=== PATIENT | female | born 1990 | race American Indian/Alaskan Native ===

== ENCOUNTER 2017-01-06 01:52 | Emergency (ER) | payer OTHER ==
[2017-01-06 02:21] VITALS: BP 114/83
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
[2017-01-06] MEDS ORDERED: FLEXERIL PO ONE (08:37)
== END 2017-01-06 08:52 | disposition home or self-care (01) ==
LOC: ED 01:52
DX: M25.512 Pain in left shoulder (principal); M54.2 Cervicalgia; V43.52XA Car driver injured in collision with other type car in traffic accident, initial encounter; Y93.89 Activity, other specified; Y92.89 Other specified places as the place of occurrence of the external cause; Y99.8 Other external cause status
CPT/HCPCS: 72040; 72100; 99283

== ENCOUNTER 2017-05-25 15:21 | Emergency (ER) | payer BC, OTHER ==
[2017-05-25 16:19] LABS: Basophils # (Auto) 0.1 K/mm3 (0.0-0.1); Basophils % (Auto) 0.6 % (0.0-1.8); Eosinophils # (Auto) 0.3 K/mm3 (0.0-0.4); Eosinophils % (Auto) 3.3 % (0.0-4.3); Hematocrit 43.2 % (30.3-42.9); Hemoglobin 13.8 gm/dl (10.1-14.3); Lymphocytes # (Auto) 3.3 K/mm3 (1.2-5.4); Lymphocytes % (Auto) 37.3 % (13.4-35.0); Mean Corpuscular HGB Conc 32 % (30-34); Mean Corpuscular Hemoglobin 29 pg (28-32); Mean Corpuscular Volume 89 fl (79-97); Monocytes # (Auto) 0.6 K/mm3 (0.0-0.8); Monocytes % (Auto) 7.1 % (0.0-7.3); Platelet Count 237 K/mm3 (140-440); Red Blood Count 4.83 M/mm3 (3.65-5.03); Red Cell Distribution Width 13.6 % (13.2-15.2)
[2017-05-25 16:22] LABS: Bilirubin,Urine NEG (Negative); Blood,Urine NEG (Negative); Color,Urine Yellow (Yellow); Mucus,Urine 3+ /HPF; Protein,Urine <15 mg/dL mg/dL (Negative); Urobilinogen,Urine < 2.0 mg/dL (<2.0)
[2017-05-25 16:37] LABS: Alanine Aminotransferase 14 units/L (7-56); BUN/Creatinine Ratio 28; Blood Urea Nitrogen 14 mg/dL (7-17); Calcium 9.2 mg/dL (8.4-10.2); Hemolysis Index 8; Lipase 25 units/L (13-60)
[2017-05-26 01:17] VITALS: BP 106/66
[2017-05-26] MEDS ORDERED: TORADOL IM ONE (01:51)
--- NOTE | 2017-05-26 01:51 | Emergency Department Report ---
ED Abdominal Pain HPI - General Chief Complaint: Abdominal Pain Stated Complaint: ABD PAIN Time Seen by Provider: 05/26/17 01:29 Source: patient Mode of arrival: Ambulatory Limitations: No Limitations - History of Present Illness Initial Comments: Ms. Dave denies dysuria. Denies vaginal discharge. No history of abdominal surgeries MD Complaint: abdominal pain -: Gradual Location: RLQ Radiation: none Migration to: no migration Severity: moderate Severity scale (0 -10): 8 Quality: aching - Related Data Previous Rx's Medication Instructions Recorded Last Taken Type traMADol [Ultram 50 MG tab] 50 mg PO Q6HR PRN #20 tablet 03/27/14 Unknown Rx Ibuprofen [Motrin 600 MG tab] 600 mg PO Q8H PRN #30 tablet 04/17/15 Unknown Rx Nitrofurantoin [place]/M-Cryst 100 mg PO Q12HR #20 capsule 04/17/15 Unknown Rx [Macrobid CAP] Cyclobenzaprine [Flexeril] 10 mg PO TID PRN #20 tablet 01/06/17 Unknown Rx Ibuprofen [Motrin 800 MG tab] 800 mg PO TID PRN #15 tablet 01/06/17 Unknown Rx HYDROcodone/APAP 5-325 [[place] 1 each PO Q6HR PRN #10 tablet 05/26/17 Unknown Rx 5/325] Ibuprofen 800 mg PO TID PRN #15 tablet 05/26/17 Unknown Rx Allergies Allergy/AdvReac Type Severity Reaction Status Date / Time No Known Allergies Allergy Unverified 12/31/12 08:10 ED Review of Systems ROS: Stated complaint: ABD PAIN Other details as noted in HPI Comment: All other systems reviewed and negative Constitutional: denies: fever, malaise Respiratory: denies: cough Cardiovascular: denies: chest pain ED Past Medical Hx - Past Medical History Previous Medical History?: No - Surgical History Past Surgical History?: No - Social History Smoking Status: Never Smoker Substance Use Type: None - Medications Home Medications: Home Medications Medication Instructions Recorded Confirmed Last Taken Type traMADol [Ultram 50 MG tab] 50 mg PO Q6HR PRN #20 tablet 03/27/14 Unknown Rx Ibuprofen [Motrin 600 MG tab] 600 mg PO Q8H PRN #30 tablet 04/17/15 Unknown Rx Nitrofurantoin [place]/M-Cryst 100 mg PO Q12HR #20 capsule 04/17/15 Unknown Rx [Macrobid CAP] Cyclobenzaprine [Flexeril] 10 mg PO TID PRN #20 tablet 01/06/17 Unknown Rx Ibuprofen [Motrin 800 MG tab] 800 mg PO TID PRN #15 tablet 01/06/17 Unknown Rx HYDROcodone/APAP 5-325 [[place] 1 each PO Q6HR PRN #10 tablet 05/26/17 Unknown Rx 5/325] Ibuprofen 800 mg PO TID PRN #15 tablet 05/26/17 Unknown Rx ED Physical Exam - General Limitations: No Limitations General appearance: alert, in no apparent distress - Head Head exam: Present: atraumatic, normocephalic - Eye Eye exam: Present: normal appearance - ENT ENT exam: Present: mucous membranes moist - Neck Neck exam: Present: normal inspection - Respiratory Respiratory exam: Present: normal lung sounds bilaterally. Absent: respiratory distress - Cardiovascular Cardiovascular Exam: Present: regular rate, normal rhythm. Absent: systolic murmur, diastolic murmur, rubs, gallop - GI/Abdominal GI/Abdominal exam: Present: soft, normal bowel sounds. Absent: distended, tenderness, guarding, rebound - External exam: Present: other (pelvic exam deferred) - Extremities Exam Extremities exam: Present: normal inspection - Back Exam Back exam: Present: normal inspection - Neurological Exam Neurological exam: Present: alert, oriented X3 - Psychiatric Psychiatric exam: Present: normal affect, normal mood - Skin Skin exam: Present: warm, dry, intact, normal color. Absent: rash ED Course Vital Signs 05/25/17 05/26/17 15:38 01:16 Temperature 98.6 F Pulse Rate 79 68 Respiratory 18 16 Rate Blood Pressure 118/64 Blood Pressure 106/66 [Left] O2 Sat by Pulse 99 100 Oximetry ED Medical Decision Making - Lab Data Result diagrams: 05/25/17 15:58 05/25/17 15:58 Laboratory Results - last 24 hr 05/25/17 05/25/17 05/25/17 15:58 15:58 15:58 WBC 8.9 RBC 4.83 Hgb 13.8 Hct 43.2 H MCV 89 MCH 29 MCHC 32 RDW 13.6 Plt Count 237 Lymph % (Auto) 37.3 H [place] % (Auto) 7.1 Eos % (Auto) 3.3 Baso % (Auto) 0.6 Lymph # 3.3 [place] # 0.6 Eos # 0.3 Baso # 0.1 Seg Neutrophils % 51.7 Seg Neutrophils # 4.6 Sodium 138 Potassium 4.1 Chloride 100.7 Carbon Dioxide 24 Anion Gap 17 BUN 14 Creatinine 0.5 L Estimated GFR > 60 BUN/Creatinine Ratio 28 Glucose 77 Calcium 9.2 Total Bilirubin 0.70 AST 13 ALT 14 Alkaline Phosphatase 64 Total Protein 7.3 Albumin 4.0 Albumin/Globulin Ratio 1.2 Lipase 25 HCG, Qual Negative Urine Color Urine Turbidity Urine pH Ur Specific [place] Urine Protein Urine Glucose (UA) Urine Ketones Urine Blood Urine Nitrite Urine Bilirubin Urine Urobilinogen Ur Leukocyte Esterase Urine WBC (Auto) Urine RBC (Auto) U Epithel Cells (Auto) Urine Mucus 05/25/17 16:00 WBC RBC Hgb Hct MCV MCH MCHC RDW Plt Count Lymph % (Auto) [place] % (Auto) Eos % (Auto) Baso % (Auto) Lymph # [place] # Eos # Baso # Seg Neutrophils % Seg Neutrophils # Sodium Potassium Chloride Carbon Dioxide Anion Gap BUN Creatinine Estimated GFR BUN/Creatinine Ratio Glucose Calcium Total Bilirubin AST ALT Alkaline Phosphatase Total Protein Albumin Albumin/Globulin Ratio Lipase HCG, Qual Urine Color Yellow Urine Turbidity Clear Urine pH 5.0 Ur Specific [place] 1.026 Urine Protein <15 mg/dl Urine Glucose (UA) Neg Urine Ketones Neg Urine Blood Neg Urine Nitrite Neg Urine Bilirubin Neg Urine Urobilinogen < 2.0 Ur Leukocyte Esterase Neg Urine WBC (Auto) 1.0 Urine RBC (Auto) 1.0 U Epithel Cells (Auto) 7.0 Urine Mucus 3+ Vital Signs - 24 hr 05/25/17 05/26/17 15:38 01:16 Temperature 98.6 F Pulse Rate 79 68 Respiratory 18 16 Rate Blood Pressure 118/64 Blood Pressure 106/66 [Left] O2 Sat by Pulse 99 100 Oximetry - Medical Decision Making Ms. Dave presents with right lower quadrant pain. No indication of appendicitis. Does have a history of ovarian cysts or previous CT scan. No indication of PID without fever or vaginal discharge. Plan patient received IM Toradol and I recommended [facility] follow-up. Prescription for ibuprofen and [place] . Critical care attestation.: If time is entered above; I have spent that time in minutes in the direct care of this critically ill patient, excluding procedure time. ED Disposition Clinical Impression: Right lower quadrant abdominal pain Disposition: DC-01 TO HOME OR SELFCARE Is pt being admited?: No Does the pt Need Aspirin: No Condition: Stable Instructions: Abdominal Pain (ED) Prescriptions: HYDROcodone/APAP 5-325 [[place] 5/325] 1 each PO Q6HR PRN #10 tablet PRN Reason: Pain Ibuprofen 800 mg PO TID PRN #15 tablet PRN Reason: Pain Referrals: SONAL SANDERS MD [Staff Physician] - 3-5 Days Forms: Work/School Release Form(ED) Time of Disposition: 01:53
== END 2017-05-26 02:08 | disposition home or self-care (01) ==
LOC: ED 15:21
DX: R10.31 Right lower quadrant pain (principal)
CPT/HCPCS: 36415; 80053; 81001; 83690; 84703; 85025; 96372; 99283; J1885

== ENCOUNTER 2018-05-02 12:16 | Emergency (ER) | payer MEDICAID, OTHER ==
--- NOTE | 2018-05-02 12:33 | Emergency Department Report ---
Chief Complaint: Abdominal Pain Stated Complaint: ABD PAIN Time Seen by Provider: 05/02/18 12:30 - HPI History of Present Illness: Pt presents with right lower abdominal pain that began 2 days ago denies any dysuria, no emesis, no vag bleeding, no vag discharge pt is currently 18 weeks /P:2/A:0 LNMP December 24, 2017 OB is My [facility] [employer] [facility] pt has not taken any medication MSE screening note: Focused history and physical exam performed. Due to findings the following was ordered: UA, labs, quant ED Disposition for MSE Condition: Stable Instructions: Abdominal Pain (ED)
[2018-05-02 12:53] LABS: Bacteria,Urine 1+ /HPF (Negative); Bilirubin,Urine NEG (Negative); Blood,Urine NEG (Negative); Color,Urine Yellow (Yellow); Mucus,Urine FEW /HPF; Protein,Urine <15 mg/dL mg/dL (Negative); Urobilinogen,Urine < 2.0 mg/dL (<2.0)
[2018-05-02 13:06] LABS: Basophils % (Auto) 0.3 % (0.0-1.8); Eosinophils # (Auto) 0.1 K/mm3 (0.0-0.4); Eosinophils % (Auto) 1.4 % (0.0-4.3); Hematocrit 36.8 % (30.3-42.9); Hemoglobin 12.3 gm/dl (10.1-14.3); Lymphocytes # (Auto) 1.9 K/mm3 (1.2-5.4); Lymphocytes % (Auto) 19.1 % (13.4-35.0); Mean Corpuscular HGB Conc 33 % (30-34); Mean Corpuscular Volume 89 fl (79-97); Monocytes # (Auto) 0.6 K/mm3 (0.0-0.8); Platelet Count 208 K/mm3 (140-440); Red Blood Count 4.12 M/mm3 (3.65-5.03); Red Cell Distribution Width 13.7 % (13.2-15.2)
[2018-05-02 13:24] LABS: Alanine Aminotransferase 9 units/L (7-56); Albumin 3.4 g/dL (3.9-5); BUN/Creatinine Ratio 25; Blood Urea Nitrogen 10 mg/dL (7-17); Calcium 8.9 mg/dL (8.4-10.2); Hemolysis Index 32
--- NOTE | 2018-05-02 14:18 | Emergency Department Report ---
ED HPI - General Chief complaint: Abdominal Pain Stated complaint: ABD PAIN Time Seen by Provider: 05/02/18 12:30 Source: patient Mode of arrival: Ambulatory Limitations: No Limitations - History of Present Illness Initial comments: 27-year-old female presents to the ED with right pelvic pain. The patient is currently 18 weeks . States has been experiencing intermittent pain for the last 2 days. Patient states pain is exacerbated by walking, trying to turn onto her left side. Patient states the pain is better if she is just sitting or lying still. OB: Dr Bonny CHEN Complaint: abdominal pain -: days(s) (2) Radiation: RLQ Severity: mild Quality: sharp Consistency: intermittent Worsens with: movement Associated symptoms: denies: nausea/vomiting, vaginal bleeding - Related Data Previous Rx's Medication Instructions Recorded Last Taken Type traMADol [Ultram 50 MG tab] 50 mg PO Q6HR PRN #20 tablet 03/27/14 Unknown Rx Ibuprofen [Motrin 600 MG tab] 600 mg PO Q8H PRN #30 tablet 04/17/15 Unknown Rx Nitrofurantoin [place]/M-Cryst 100 mg PO Q12HR #20 capsule 04/17/15 Unknown Rx [Macrobid CAP] Cyclobenzaprine [Flexeril] 10 mg PO TID PRN #20 tablet 01/06/17 Unknown Rx Ibuprofen [Motrin 800 MG tab] 800 mg PO TID PRN #15 tablet 01/06/17 Unknown Rx HYDROcodone/APAP 5-325 [[place] 1 each PO Q6HR PRN #10 tablet 05/26/17 Unknown Rx 5/325] Ibuprofen 800 mg PO TID PRN #15 tablet 05/26/17 Unknown Rx Allergies Allergy/AdvReac Type Severity Reaction Status Date / Time No Known Allergies Allergy Verified 05/02/18 12:18 ED Review of Systems ROS: Stated complaint: ABD PAIN Other details as noted in HPI Comment: All other systems reviewed and negative Constitutional: denies: fever Gastrointestinal: abdominal pain. denies: nausea, vomiting Genitourinary: other (denies vag bleeding) ED Past Medical Hx - Past Medical History Previous Medical History?: No - Surgical History Past Surgical History?: No - Social History Smoking Status: Never Smoker Substance Use Type: None - Medications Home Medications: Home Medications Medication Instructions Recorded Confirmed Last Taken Type traMADol [Ultram 50 MG tab] 50 mg PO Q6HR PRN #20 tablet 03/27/14 Unknown Rx Ibuprofen [Motrin 600 MG tab] 600 mg PO Q8H PRN #30 tablet 04/17/15 Unknown Rx Nitrofurantoin [place]/M-Cryst 100 mg PO Q12HR #20 capsule 04/17/15 Unknown Rx [Macrobid CAP] Cyclobenzaprine [Flexeril] 10 mg PO TID PRN #20 tablet 01/06/17 Unknown Rx Ibuprofen [Motrin 800 MG tab] 800 mg PO TID PRN #15 tablet 01/06/17 Unknown Rx HYDROcodone/APAP 5-325 [[place] 1 each PO Q6HR PRN #10 tablet 05/26/17 Unknown Rx 5/325] Ibuprofen 800 mg PO TID PRN #15 tablet 05/26/17 Unknown Rx ED Physical Exam - General Limitations: No Limitations General appearance: alert, in no apparent distress - Head Head exam: Present: atraumatic, normocephalic - Eye Eye exam: Present: normal appearance - ENT ENT exam: Present: mucous membranes moist - Neck Neck exam: Present: normal inspection - Respiratory Respiratory exam: Present: normal lung sounds bilaterally. Absent: respiratory distress - Cardiovascular Cardiovascular Exam: Present: regular rate, normal rhythm - GI/Abdominal GI/Abdominal exam: Present: soft. Absent: distended, tenderness - Extremities Exam Extremities exam: Present: normal inspection - Neurological Exam Neurological exam: Present: alert, oriented X3 - Psychiatric Psychiatric exam: Present: normal affect, normal mood - Skin Skin exam: Present: warm, dry, intact, normal color ED Course Vital Signs 05/02/18 12:32 Temperature 97.7 F Pulse Rate 83 Respiratory 18 Rate Blood Pressure 122/67 O2 Sat by Pulse 100 Oximetry ED Medical Decision Making - Lab Data Result diagrams: 05/02/18 12:48 05/02/18 12:48 Critical care attestation.: If time is entered above; I have spent that time in minutes in the direct care of this critically ill patient, excluding procedure time. ED Disposition Clinical Impression: 18 weeks gestation of , Abdominal pain during in second trimester Disposition: DC-01 TO HOME OR SELFCARE Is pt being admited?: No Condition: Stable Instructions: Abdominal Pain in (ED) Referrals: PRIMARY CARE, [Referring] - 3-5 Days
--- NOTE | 2018-05-02 19:44 | Ultrasound Report ---
PROCEDURE: US OB >= 14 WEEKS FETUS TECHNIQUE: Transabdominal obstetrical ultrasound HISTORY: R pelvic pain COMPARISONS: None FINDINGS: Single live intrauterine second trimester with ultrasound estimated gestational age of 18 w eeks 3 days by measurements composite. heart rate of 148 bpm. Cervix length is 3.6 cm. Amniotic fluid volume is within normal limits. Fetus is in cephalic presentation. The placenta is anterior, grade 1 and demonstrates no abruption or previa. The fetus is in cephalic presentation. The right ovary is unremarkable and demonstrates Doppler flow. No free fluid. IMPRESSION: Single live intrauterine with ultrasound DARRION 09/30/2018. Unremarkable exam. This document is electronically signed by Luciano Rubio MD., May 02 2018 07:41:39 PM ET
[2018-05-02 19:59] VITALS: BP 120/68
== END 2018-05-02 19:59 | disposition home or self-care (01) ==
LOC: ED 12:16
DX: O26.892 Other specified pregnancy related conditions, second trimester (principal); R10.2 Pelvic and perineal pain; R10.31 Right lower quadrant pain; Z3A.18 18 weeks gestation of pregnancy
CPT/HCPCS: 36415; 76805; 80053; 81001; 83690; 84702; 85025

== ENCOUNTER 2018-07-10 13:26 | Outpatient (CLI) | payer BC, MEDICAID | END 2018-07-10 15:41 | disposition home or self-care (01) | LOC: TRG 13:26 | PROVIDERS: ATTEND Obstetrics & Gynecology | DX: O47.02 False labor before 37 completed weeks of gestation, second trimester (principal); Z3A.26 26 weeks gestation of pregnancy | CPT/HCPCS: 59025 ==

== ENCOUNTER 2018-09-10 08:29 | Outpatient (CLI) | payer BC, MEDICAID ==
[2018-09-10 09:04] VITALS: BP 111/62
[2018-09-10] MEDS ORDERED: VISTARIL PO PRN (10:10)
== END 2018-09-10 12:10 | disposition home or self-care (01) ==
LOC: TRG 08:29
PROVIDERS: ATTEND Obstetrics & Gynecology
DX: O47.03 False labor before 37 completed weeks of gestation, third trimester (principal); Z3A.37 37 weeks gestation of pregnancy

== ENCOUNTER 2018-09-23 09:07 | Inpatient (IN) | payer BC, MEDICAID ==
--- NOTE | 2018-09-23 13:17 | Ultrasound Report ---
ULTRASOUND BIOPHYSICAL PROFILE INDICATION / CLINICAL INFORMATION: Isolated late decel. COMPARISON: None available. FINDINGS: BREATHING MOVEMENT = 2 GROSS BODY MOVEMENT = 2 TONE = 2 QUALITATIVE AMNIOTIC FLUID VOLUME = 2 TOTAL BIOPHYSICAL SCORE = 09/24 AMNIOTIC FLUID INDEX (cm) = 5.9 PRESENTATION: Cephalic. HEART RATE (beats per minute): 138 IMPRESSION: 1. biophysical profile = 09/24 Signer Name: Lisandro Fenton MD Signed: 09/23/2018 1:12 PM Workstation Name: [id number]
--- NOTE | 2018-09-23 13:29 | Ultrasound Report ---
Limited OB ultrasound. History: Amniotic fluid index, well being Comparison: None Procedure: Real time ultrasound was utilized to evaluate. Findings: A single intrauterine is identified in a cephalic presentation. Positive he art motion and movement is identified. heart rate is 138 bpm. Amnionic fluid volume is de creased. Amniotic fluid index is measuring 5.9 cm. Impression: 1. Single viable IUP in a cephalic presentation. Amniotic fluid volume is decreased with SANKET of 5.9 c m. Signer Name: Laila Croft MD Signed: 09/23/2018 1:24 PM Workstation Name: [id number]
[2018-09-23] MEDS ORDERED: PITOCin/NS 20 UNIT/1000ML DRIP 20 UNITS/1,000 ML BAG IV SCH (15:00)
[2018-09-23] MEDS ORDERED: PITOCin/NS 30 UNIT/500ML 30 UNITS/500 ML BAG IV SCH ×2 (15:00)
[2018-09-23] MEDS ORDERED: XYLOCAINE 2% INFILTRATI NR (15:30)
[2018-09-23] MEDS ORDERED: BRETHINE SUB-Q PRN (15:30)
[2018-09-23] MEDS ORDERED: BRETHINE IVP PRN (15:30)
--- NOTE | 2018-09-23 15:50 | History and Physical Report ---
History of Present Illness Date of examination: 09/23/18 Date of admission: 09/23/18 Chief complaint: contractions History of present illness: Pt presents for labor check and was noted to have variable decel on triage. SANKET done and was 5.9. Pt being admitted for IOL for low SANKET. EDC Confirmation: 10/01/2018 Gestational Age: 8 1/7 weeks Past History : 3 Term Births: 1 Premature Births: 1 Living Children: 2 Para: 2 Mult. Births: 0 Prev : 0 Prev. attempt? 0 Aborta: 0 Elect. Ab: 0 Spont. Ab: 0 Ectopics: 0 # 1 Delivery date: 12/30/2006 Weeks Gestation: 36 labor: yes Delivery type: Anesthesia type: epidural Delivery location: [facility] Sex: Female weight: 5 # 2 Delivery date: 10/03/2011 Weeks Gestation: 38 Delivery type: Anesthesia type: none Delivery location: [facility] Infant Sex: Female weight: 5 Past Medical History: Reviewed history from 07/24/2017 and no changes required: Chlamydia 2014 Past Surgical History: Reviewed history from 05/03/2014 and no changes required: Negative Past Surgical History Past Medical History Abnormal PAP: negative CHICA Exposure: negative Infertility: negative Uterine Anomaly: negative Uterine Surgery (not C/S): negative Other Gynecologic Problems: negative 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 Infection History Hx of STD: chlamydia HIV Risk Eval: low risk Hepatitis B Risk Eval: low risk Personal hx. of genital herpes: no Partner hx. of genital herpes: no Rash, Viral, or Febrile illness since last LMP? 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 Genetic History Congenital Heart Defect: Mom: no Dad: no Omar Disease: Mom: no Dad: no Thalassemia Mom: no Dad: no Neural Tube Defect Mom: no Dad: no Down's Syndrome Mom: no Dad: no Emiliano-Sachs Mom: no Dad: no Sickle Cell Disease/Trait Mom: no Dad: no Hemophilia Mom: no Dad: no Muscular Dystrophy Mom: no Dad: no Cystic Fibrosis Mom: no Dad: no Hester Chorea Mom: no Dad: no Mental Retardation Mom: no Dad: no Fragile X Mom: no Dad: no Other Genetic/Chromosomal Disorder Mom: no Dad: no Child w/other defect Mom: no Dad: no Enviromental Exposures Enviromental Exposures Reviewed Xray Exposure: no Medication, drug, or alcohol use since LMP: no Chemical/Other Exposure: no Exposure to Cat Liter: no Hx of Parvovirus (Fifth Disease): no Occupational Exposure to Children: none Past History Past Medical History: other (see hpi) Past Surgical History: other (see hpi) 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 LOOMS History: other (see hpi) Social history: other (see hpi) - Obstetrical History Expected Date of Delivery: 10/01/18 Actual Gestation: 38 Week(s) 6 Day(s) : 3 Para: 2 Hx # Term Pregnancies: 1 Number of Pregnancies: 1 Number of Living Children: 2 Medications and Allergies Allergies Allergy/AdvReac Type Severity Reaction Status Date / Time No Known Allergies Allergy Verified 05/02/18 12:18 Home Medications Medication Instructions Recorded Confirmed Last Taken Type RX: traMADol [Ultram 50 MG tab] 50 mg PO Q6HR PRN #20 tablet 03/27/14 Unknown Rx Nitrofurantoin [place]/M-Cryst 100 mg PO Q12HR #20 capsule 04/17/15 Unknown Rx [Macrobid CAP] RX: Ibuprofen [Motrin 600 MG tab] 600 mg PO Q8H PRN #30 tablet 04/17/15 Unknown Rx Cyclobenzaprine [Flexeril] 10 mg PO TID PRN #20 tablet 01/06/17 Unknown Rx RX: Ibuprofen [Motrin 800 MG tab] 800 mg PO TID PRN #15 tablet 01/06/17 Unknown Rx HYDROcodone/APAP 5-325 [[place] 1 each PO Q6HR PRN #10 tablet 05/26/17 Unknown Rx 5/325] RX: Ibuprofen [Ibuprofen 800] 800 mg PO TID PRN #15 tablet 05/26/17 Unknown Rx Active Meds: Active Medications Ephedrine Sulfate (Ephedrine Sulfate) 10 mg IV Q2M PRN PRN Reason: Hypotension Lactated Ringer's (Lactated Ringers) 1,000 mls @ 125 mls/hr IV DIRECT YOLANDA Oxytocin/Sodium Chloride (Pitocin/Ns 20 Unit/1000ml Drip) 20 units in 1,000 mls @ 125 mls/hr IV DIRECT YOLANDA Oxytocin/Sodium Chloride (Pitocin/Ns 30 Unit/500ml) 30 units in 500 mls @ 1 mls/hr IV TITR YOLANDA; Protocol Oxytocin/Sodium Chloride (Pitocin/Ns 30 Unit/500ml) 30 units in 500 mls @ 4 mls/hr IV TITR YOLANDA; Protocol Lidocaine (Xylocaine 2%) 20 ml INFILTRATI ONCE NR Stop: 09/24/18 15:29 Mineral Oil (Mineral Oil) 30 ml PO QHS PRN PRN Reason: Constipation Terbutaline Sulfate (Brethine) 0.25 mg SUB-Q ONCE PRN PRN Reason: Hyperstimulation/Hypertonicity Terbutaline Sulfate (Brethine) 0.25 mg IVP ONCE PRN PRN Reason: Hyperstimulation/Hypertonicity - Vital Signs Vital signs: Vital Signs Pulse BP 88 113/65 09/23/18 10:01 09/23/18 10:01 Temp Pulse Resp BP Pulse Ox 95 H 115/67 09/23/18 15:30 09/23/18 15:30 - Physical Exam Lungs: Positive: Normal air movement Abdomen: Positive: normal appearance, soft, normal bowel sounds. Negative: distention, tenderness, guarding Genitourinary (Female): Positive: normal external genitalia, normal perenium - Obstetrical FHR: category 1 Results All other labs normal. Assessment and Plan - Patient Problems (1) 38 weeks gestation of Current Visit: Yes Status: Acute (2) SANKET (amniotic fluid index) borderline low Current Visit: Yes Status: Acute Plan to address problem: -admit and start IOL -anticipate
--- NOTE | 2018-09-23 16:18 | Progress Note ---
Assessment and Plan - Patient Problems (1) 38 weeks gestation of Current Visit: Yes Status: Acute (2) SANKET (amniotic fluid index) borderline low Current Visit: Yes Status: Acute Plan to address problem: -now in active labor -pain management. -antibx for gbs. -nurse made aware of pt progression. Subjective - Subjective Date of service: 09/23/18 Principal diagnosis: term IOL for low SANKET; GBS positive Interval history: pt now having contractions q 1-2 minutes and feels pain with the contractions. Does desire epidural but will take IV pain meds at this time Patient reports: movement normal, contractions, no loss of fluid, no vaginal bleeding Objective - Vital Signs Vital Signs: Vital Signs - 12hr 09/23/18 09/23/18 10:01 15:30 Pulse Rate 88 95 H Blood Pressure 113/65 115/67 - Exam Cervical Dilatation: 4 Cervical Effacement Percentage: 50 station: -2 Uterine Contraction Pattern: Regular Uterine Tone Measurement Phase: Resting Uterine Contraction Intensity: Moderate Extremities: normal Deep Tendon Reflex Grade: Normal +2
[2018-09-23] MEDS ORDERED: AMPICILLIN/NS 2 GM/100 ML 2 GM/100 ML BAG IV ONE (16:20)
[2018-09-23] MEDS: LACTATED RINGERS 1,000 ML IV SCH ×2 (17:19→19:07)
[2018-09-23 17:42] LABS: Hematocrit 40.7 % (30.3-42.9); Hemoglobin 13.3 gm/dl (10.1-14.3); Mean Corpuscular HGB Conc 33 % (30-34); Mean Corpuscular Volume 91 fl (79-97); Platelet Count 193 K/mm3 (140-440); Red Blood Count 4.47 M/mm3 (3.65-5.03)
[2018-09-23] MEDS ORDERED: ZOFRAN IV PRN (18:04)
[2018-09-23] MEDS ORDERED: STADOL IV PRN (18:04)
[2018-09-23] MEDS: AMPICILLIN/NS 1 GM/50 ML 1 GM/50 ML BAG IV SCH ×2 (19:40→22:58)
[2018-09-23] MEDS ORDERED: NARCAN 2 MG/2 ML IV PRN (21:11)
[2018-09-23] MEDS ORDERED: MARCAINE 0.25% INFILTRATI ONE (21:43)
[2018-09-23] MEDS ORDERED: MINERAL OIL PO PRN (22:00)
[2018-09-23] MEDS ORDERED: fentaNYL-BUPIV 2 MCG/ML-0.125% 200 MCG/100 ML BAG EPIDURAL SCH (22:00)
--- NOTE | 2018-09-23 22:25 | Event Note ---
Date: 09/23/18 Variable decelerations noted. SVE 6/80/-2, vertex, SROM approx 10 minutes ago according to RN, rai. Pt reports being uncomfortable with contractions s/p epidural placement. 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 Pt repositioned, decelerations resolved. Will continue to monitor.
--- NOTE | 2018-09-23 23:10 | Anesthesia Consultation ---
Anesthesia Consult and Med Hx Date of service: 09/23/18 - Airway Anesthetic Teeth Evaluation: Good ROM Head & Neck: Adequate Mental/Hyoid Distance: Adequate Mallampati Class: Class II Intubation Access Assessment: Probably Good - Pulmonary Exam CTA: Yes - Cardiac Exam Cardiac Exam: RRR - Pre-Operative Health Status ASA Pre-Surgery Classification: ASA2 Proposed Anesthetic Plan: Epidural - Pre-Anesthesia Comment Pre-Anesthesia Comments: hx of DVT - Pulmonary Hx Smoking: No Hx Asthma: No Hx Respiratory Symptoms: No SOB: No COPD: No Home Oxygen Therapy: No Hx Pneumonia: No Hx Sleep Apnea: No - Cardiovascular System Hx Hypertension: No Hx Coronary Artery Disease: No Hx Heart Attack/AMI: No Hx Angina: No Hx Percutaneous Transluminal Coronary Angioplasty (PTCA): No Hx Cardia Arrhythmia: No Hx Pacemaker: No Hx Internal Defibrillator: No Hx Valvular Heart Disease: No Hx Heart Murmur: No Hx Peripheral Vascular Disease: No - Central Nervous System Hx Neuromuscular Disorder: No Hx Seizures: No CVA: No Hx Back Pain: Yes Hx Psychiatric Problems: No - Gastrointestinal Hx Ulcer: No Hx Gastroesophageal Reflux Disease: Yes - Endocrine Hx Renal Disease: No Hx End Stage Renal Disease: No Hx Cirrhosis: No Hx Liver Disease: No Hx Insulin Dependent Diabetes: No Hx Non-Insulin Dependent Diabetes: No Hx Thyroid Disease: No Hx Hypothyroidism: No Hx Hyperthyroidism: No - Hematic Hx Anemia: No Hx Sickle Cell Disease: No - Other Systems Hx Alcohol Use: No Hx Substance Use: No Hx Cancer: No Hx Obesity: No
--- NOTE | 2018-09-24 00:56 | Procedure Note ---
OB Delivery Note - Delivery Date of Delivery: 09/24/18 Surgeon: TITO KOTHARI Estimated blood loss: 300cc - Vaginal Delivery presentation: vertex Delivery position: OA Intrapartum events: meconium (light), other(please specify) Delivery induction: none Delivery augmentation: pitocin Delivery monitor: external FHT, external uterine Route of delivery: Delivery placenta: spontaneous, manual (due to cord evulsion) Delivery cord: nuchal cord (times one tight. clamped time two and cut times one and easily reduced.) Episiotomy: none Delivery laceration: none Anesthesia: epidural Delivery comments: Delivery as above. Pt progressed to c/c/3+ station and with one to two pushes delivered a live born female infant weight 6lbs 6oz. Ant shoulder and rest of delivered without difficulty. There was a nuchal cord times one that was clamped times two and cut and easily reduced prior to delivery of ant shoulder. was placed on maternal abdomen. cord blood was collected. Placenta manual extracted after evulsion of cord. All counts were correct. Infant and mother stable in LDR. - A at 1 minute: 7 at 5 minutes: 9 Infant Gender: Female (6lbs 6.3oz)
[2018-09-24] MEDS ORDERED: LANSINOH TP PRN (00:57)
[2018-09-24] MEDS ORDERED: BENADRYL PO PRN (00:57)
[2018-09-24] MEDS ORDERED: MILK OF MAGNESIA PO PRN (00:57)
[2018-09-24] MEDS ORDERED: PHENERGAN PO PRN (00:57)
[2018-09-24] MEDS ORDERED: DULCOLAX PR PRN (00:57)
[2018-09-24] MEDS ORDERED: TUCKS PAD TP PRN (00:57)
[2018-09-24] MEDS ORDERED: SODIUM CHLORIDE FLUSH SYRINGE 10 ML IV PRN (01:00)
[2018-09-24] MEDS: IBUPROFEN PO SCH ×4 (01:44→23:44)
[2018-09-24] MEDS: TYLENOL PO PRN (03:57)
--- NOTE | 2018-09-24 08:02 | Event Note ---
Date: 09/24/18 Pt <12 hrs post . Pt received resting in bed quietly. VSSAF. H/H due at 1300. Bleeding moderate. Reports pain managed with medication PRN. Bottle- feeding. All questions addressed. SHAAN Beatty
[2018-09-24 18:25] LABS: Hematocrit 36.8 % (30.3-42.9); Hemoglobin 12.2 gm/dl (10.1-14.3)
[2018-09-25 02:45] VITALS: BP 120/75
[2018-09-25] MEDS: IBUPROFEN PO SCH (05:31)
[2018-09-25] MEDS ORDERED: BOOSTRIX IM ONE (06:00)
[2018-09-25] MEDS: TYLENOL PO PRN (09:38)
--- NOTE | 2018-09-25 10:31 | Discharge Summary ---
Providers - Providers Date of Admission: 09/23/18 09:08 Date of discharge: 09/25/18 (patient desires discharge today) Attending physician: TITO KOTHARI Primary care physician: TITO KOTHARI Hospitalization Reason for admission: labor Condition: Good Pertinent studies: post delivery H&H 12.2/36.8 Procedures: Hospital course: uncomplicated delivery and course Disposition: DC-01 TO HOME OR SELFCARE Core Measure Documentation - Palliative Care Palliative Care/ Comfort Measures: Not Applicable - Core Measures Any of the following diagnoses?: none Exam - Constitutional Vitals: Temp Pulse Resp BP Pulse Ox 98.4 F 65 18 120/75 99 09/25/18 08:43 09/25/18 08:43 09/25/18 08:43 09/25/18 08:43 09/25/18 08:43 General appearance: Present: no acute distress, well-nourished - EENT Eyes: Present: PERRL ENT: hearing intact, clear oral mucosa - Neck Neck: Present: supple, normal ROM - Respiratory Respiratory effort: normal Respiratory: bilateral: CTA - Cardiovascular Rhythm: regular Heart Sounds: Present: S1 & S2. Absent: rub, click - Extremities Extremities: pulses symmetrical, No edema Peripheral Pulses: within normal limits - Abdominal General gastrointestinal: Present: soft, non-tender, non-distended, normal bowel sounds Female genitourinary: Present: normal - Integumentary Integumentary: Present: clear, warm, dry - Musculoskeletal Musculoskeletal: gait normal, strength equal bilaterally - Psychiatric Psychiatric: appropriate mood/affect, intact judgment & insight - Neurologic Neurologic: CNII-XII intact, moves all extremities - Additional findings Additional findings: Patient resting in bed, denies any complaints or concerns. Fundus is firm, ML, U/2. Vaginal bleeding is small, patient denies any heavy bleeding or clots. Patient reports pain is well controlled with medications. She reports bottle/formula feeding . DWP benefits of breast feeding and she agrees to attempt. education provided. Reviewed labs with patient. She denies any dizziness or feeling faint with ambulation and position changes. VSSAF. Plan Activity: no restrictions Diet: regular Follow up with: TITO KOTHARI MD [Primary Care Provider] - 7 Days (Congratulations! Please call [phone] to schedule your appointment in 4 weeks. Call with any questions or concerns. )
== END 2018-09-25 16:10 | disposition home or self-care (01) | DRG 807 ==
LOC: TRG 09:07 → LD 09:07 → TRG 09:09 → OB 09-24 03:21
PROVIDERS: ADMIT Obstetrics & Gynecology; ATTEND Obstetrics & Gynecology
PROC: 10E0XZZ Delivery of Products of Conception, External Approach (ICD-10-PCS; principal; 2018-09-24)
PROC: 3E0R3BZ Introduction of Anesthetic Agent into Spinal Canal, Percutaneous Approach (ICD-10-PCS; 2018-09-24)
PROC: 00HU33Z Insertion of Infusion Device into Spinal Canal, Percutaneous Approach (ICD-10-PCS; 2018-09-24)
PROC: 3E0234Z Introduction of Serum, Toxoid and Vaccine into Muscle, Percutaneous Approach (ICD-10-PCS; 2018-09-25)
DX: O77.0 Labor and delivery complicated by meconium in amniotic fluid (principal); Z37.0 Single live birth; O99.62 Diseases of the digestive system complicating childbirth; K21.9 Gastro-esophageal reflux disease without esophagitis; O69.1XX0 Labor and delivery complicated by cord around neck, with compression, not applicable or unspecified; O42.92 Full-term premature rupture of membranes, unspecified as to length of time between rupture and onset of labor; Z86.718 Personal history of other venous thrombosis and embolism; Z23 Encounter for immunization; Z3A.38 38 weeks gestation of pregnancy; Z79.899 Other long term (current) drug therapy
CPT/HCPCS: 36415; 76815; 76819; 85014; 85018; 85027; 86592; 86850; 86900; 86901; G0378; J0290; J0595; J2405; J2590; J7120

== ENCOUNTER 2018-09-29 18:45 | Inpatient (IN) | payer BC, MEDICAID ==
--- NOTE | 2018-09-29 19:05 | Event Note ---
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 Further treatment and workup at subsequent clinical providers discretion. Patient/guardian urged not to elope from the ED as their condition may be serious if not clinically assessed and managed. Initial orders include: CT lumbar spine, labs
[2018-09-29 19:35] LABS: Basophils % (Auto) 0.4 % (0.0-1.8); Eosinophils # (Auto) 0.3 K/mm3 (0.0-0.4); Eosinophils % (Auto) 3.9 % (0.0-4.3); Hematocrit 37.8 % (30.3-42.9); Hemoglobin 12.5 gm/dl (10.1-14.3); Lymphocytes # (Auto) 2.1 K/mm3 (1.2-5.4); Lymphocytes % (Auto) 23.6 % (13.4-35.0); Mean Corpuscular HGB Conc 33 % (30-34); Mean Corpuscular Volume 91 fl (79-97); Monocytes # (Auto) 0.8 K/mm3 (0.0-0.8); Monocytes % (Auto) 9.4 % (0.0-7.3); Platelet Count 214 K/mm3 (140-440); Red Blood Count 4.16 M/mm3 (3.65-5.03)
[2018-09-29] MEDS ORDERED: NACL 0.9% 1000 ML 1,000 ML IV ONE (19:45)
[2018-09-29] MEDS ORDERED: TORADOL IV ONE (19:45)
[2018-09-29] MEDS ORDERED: FIORICET PO ONE (19:45)
[2018-09-29] MEDS ORDERED: ZOFRAN IV ONE (19:45)
[2018-09-29] MEDS ORDERED: BENADRYL IV ONE (19:45)
[2018-09-29 19:52] LABS: Alanine Aminotransferase 87 units/L (7-56); Albumin 3.1 g/dL (3.9-5); BUN/Creatinine Ratio 22; Blood Urea Nitrogen 26 mg/dL (7-17); Hemolysis Index 7
[2018-09-29 20:02] LABS: INR 1.01 (0.87-1.13)
[2018-09-29 20:03] LABS: Partial Thromboplastin Time 28.3 Sec. (24.2-36.6)
--- NOTE | 2018-09-29 20:10 | Cat Scan Report ---
CT LUMBAR SPINE WITHOUT CONTRAST HISTORY: Low back pain; epidural injection COMPARISON: None TECHNIQUE: CT images of the lumbar spine were obtained without contrast. Sagittal and coronal reform ats were post-processed. All CT scans at this location are performed using CT dose reduction for ALAR A by means of automated exposure control. CONTRAST: None. FINDINGS: Alignment: Normal. Vertebrae:No significant abnormality. No fracture. Disc Spaces: Nonlateralizing midline bulging discs are seen at L4-L5 and L5-S1 disc levels. Facet Joints:No significant abnormality. Additional Findings: Dorsal epidural space is normal. I do not see epidural hematoma. Dorsal epidural fat is seen normally at L1-L2, L2-L3, L3-L4 and L4-L5 levels. At L5-S1 level, I do not see epidural hematoma. Epidural fat at this level is not seen. May be the level of the epidural injection. IMPRESSION: I do not see epidural hematoma Nonlateralizing bulging disc at L4-L5 and L5-S1 levels Signer Name: Rey Romero MD Signed: 09/29/2018 8:05 PM Workstation Name: [id number]
--- NOTE | 2018-09-29 21:13 | Emergency Department Report ---
ED General Adult HPI - General Chief complaint: Back Pain/Injury Stated complaint: BACK/NECK PAIN/HEADACHE Time Seen by Provider: 09/29/18 19:03 Source: patient Mode of arrival: Ambulatory Limitations: No Limitations - History of Present Illness Initial comments: Patient is a 27-year-old female with no past medical history presents to ED with complaint of acute onset persistent severe headache, neck pain low back pain for the last 2 days. Patient is 4 days from spontaneous vaginal delivery and states that she had to epidural procedures performed during her delivery 4 days ago. Patient states that the headache has been progressively getting worse. Patient denies change in vision, nausea, vomiting, syncope, chest pain, shortness of breath, seizures, abdominal pain, fever or chills. MD Complaint: neck pain, headache, low back pain -: Sudden, days(s) (2) Location: head, neck, back Radiation: back, neck Severity scale (0 -10): 8 Quality: aching, sharp, constant Consistency: constant Improves with: none Worsens with: none Associated Symptoms: denies other symptoms, headaches, loss of appetite. denies: confusion, chest pain, cough, diaphoresis, fever/chills, malaise, nausea/vomiting, seizure, shortness of breath, syncope, weakness Treatments Prior to Arrival: none - Related Data Previous Rx's Medication Instructions Recorded Last Taken Type traMADol [Ultram 50 MG tab] 50 mg PO Q6HR PRN #20 tablet 03/27/14 Unknown Rx Ibuprofen [Motrin 600 MG tab] 600 mg PO Q8H PRN #30 tablet 04/17/15 Unknown Rx Nitrofurantoin [place]/M-Cryst 100 mg PO Q12HR #20 capsule 04/17/15 Unknown Rx [Macrobid CAP] Cyclobenzaprine [Flexeril] 10 mg PO TID PRN #20 tablet 01/06/17 Unknown Rx Ibuprofen [Motrin 800 MG tab] 800 mg PO TID PRN #15 tablet 01/06/17 Unknown Rx HYDROcodone/APAP 5-325 [[place] 1 each PO Q6HR PRN #10 tablet 05/26/17 Unknown Rx 5/325] Ibuprofen [Ibuprofen 800] 800 mg PO TID PRN #15 tablet 05/26/17 Unknown Rx Butalb/Acetamin/Caff 50-325-40 1 tab PO Q6HR PRN #15 tab 09/29/18 Unknown Rx [Fioricet 50-325-40] Ketorolac [Toradol] 10 mg PO Q8H PRN #20 tablet 09/29/18 Unknown Rx tiZANidine [Zanaflex 4mg TAB] 4 mg PO Q8H PRN #21 tablet 09/29/18 Unknown Rx Allergies Allergy/AdvReac Type Severity Reaction Status Date / Time No Known Allergies Allergy Verified 05/02/18 12:18 ED Review of Systems ROS: Stated complaint: BACK/NECK PAIN/HEADACHE Other details as noted in HPI Constitutional: denies: chills, fever Eyes: denies: eye pain, eye discharge, vision change ENT: denies: ear pain, throat pain Respiratory: denies: cough, shortness of breath, wheezing Cardiovascular: denies: chest pain, palpitations Endocrine: no symptoms reported Gastrointestinal: denies: abdominal pain, nausea, diarrhea Genitourinary: denies: urgency, dysuria, discharge Musculoskeletal: back pain, arthralgia (neck pain). denies: joint swelling Skin: denies: rash, lesions Neurological: headache. denies: weakness, paresthesias Psychiatric: denies: anxiety, depression Hematological/Lymphatic: denies: easy bleeding, easy bruising ED Past Medical Hx - Past Medical History Hx Hypertension: No Hx Heart Attack/AMI: No Hx Congestive Heart Failure: No Hx Diabetes: No Hx Deep Vein Thrombosis: No Hx Liver Disease: No Hx Renal Disease: No Hx Sickle Cell Disease: No Hx Seizures: No Hx Asthma: No Hx COPD: No Hx HIV: No - Surgical History Hx Pacemaker: No Hx Internal Defibrillator: No - Social History Smoking Status: Never Smoker Substance Use Type: None - Medications Home Medications: Home Medications Medication Instructions Recorded Confirmed Last Taken Type traMADol [Ultram 50 MG tab] 50 mg PO Q6HR PRN #20 tablet 03/27/14 09/24/18 Unknown Rx Ibuprofen [Motrin 600 MG tab] 600 mg PO Q8H PRN #30 tablet 04/17/15 09/24/18 Unknown Rx Nitrofurantoin Garvin/M-Cryst 100 mg PO Q12HR #20 capsule 04/17/15 09/24/18 Unknown Rx [Macrobid CAP] Cyclobenzaprine [Flexeril] 10 mg PO TID PRN #20 tablet 01/06/17 09/24/18 Unknown Rx Ibuprofen [Motrin 800 MG tab] 800 mg PO TID PRN #15 tablet 01/06/17 09/24/18 Unknown Rx HYDROcodone/APAP 5-325 [[place] 1 each PO Q6HR PRN #10 tablet 05/26/17 09/24/18 Unknown Rx 5/325] Ibuprofen [Ibuprofen 800] 800 mg PO TID PRN #15 tablet 05/26/17 09/24/18 Unknown Rx Butalb/Acetamin/Caff 50-325-40 1 tab PO Q6HR PRN #15 tab 09/29/18 Unknown Rx [Fioricet 50-325-40] Ketorolac [Toradol] 10 mg PO Q8H PRN #20 tablet 09/29/18 Unknown Rx tiZANidine [Zanaflex 4mg TAB] 4 mg PO Q8H PRN #21 tablet 09/29/18 Unknown Rx ED Physical Exam - General Limitations: No Limitations General appearance: alert, in no apparent distress - Head Head exam: Present: atraumatic, normocephalic, normal inspection - Eye Eye exam: Present: normal appearance, PERRL, EOMI Pupils: Present: normal accommodation - ENT ENT exam: Present: normal exam, normal orophraynx, mucous membranes moist, TM's normal bilaterally, normal external ear exam - Neck Neck exam: Present: normal inspection, tenderness (palpable cervical paraspinal tenderness), full ROM - Respiratory Respiratory exam: Present: normal lung sounds bilaterally. Absent: respiratory distress, wheezes, rales, rhonchi, chest wall tenderness, accessory muscle use, decreased breath sounds - Cardiovascular Cardiovascular Exam: Present: regular rate, normal rhythm, normal heart sounds. Absent: systolic murmur, diastolic murmur, rubs, gallop - GI/Abdominal GI/Abdominal exam: Present: soft, normal bowel sounds. Absent: tenderness - Rectal Rectal exam: Present: deferred - Extremities Exam Extremities exam: Present: normal inspection, full ROM, normal capillary refill - Back Exam Back exam: Present: normal inspection, tenderness (palpable lumbosacral paraspinal musculoskeletal tenderness), muscle spasm, paraspinal tenderness - Neurological Exam Neurological exam: Present: alert, oriented X3, CN II-XII intact, normal gait, reflexes normal - Psychiatric Psychiatric exam: Present: normal affect, normal mood - Skin Skin exam: Present: warm, dry, intact, normal color. Absent: rash ED Course Vital Signs 09/29/18 09/29/18 09/30/18 19:03 22:25 00:06 Temperature 98.6 F 98.5 F Pulse Rate 62 66 63 Respiratory 19 16 Rate Blood Pressure 160/104 Blood Pressure 182/107 161/103 [Left] O2 Sat by Pulse 99 100 Oximetry 09/30/18 01:09 Temperature Pulse Rate 70 Respiratory 16 Rate Blood Pressure Blood Pressure 154/95 [Left] O2 Sat by Pulse 99 Oximetry - Reevaluation(s) Reevaluation #1: 09/29/18 21:56 This is a 27-year-old -[place] female who is 4 days spontaneous vaginal delivery and who presented to the ED with severe headache, neck pain and low back pain for the last 3 days. Patient states that she had an epidural procedure during delivery in 2 places in her lower back. In the ED, patient is alert and oriented 3, and is not in distress except pain, and is hypertensive. Labs were drawn and Head CT scan without contrast shows no acute intracranial abnormalities or hemorrhage. L-spine CT scan without contrast shows no fractures, subluxations, and or epidural hematoma. There is however nonlateralizing bulging disc at L4-L5 and L5-S1 levels. Patient was treated for pain in the ED and on reevaluation, patient's pain is well-controlled with medications. On reevaluation, patient vital signs do show hypertension. Lab test results were reviewed and showed BUN of 26, AST of 49 and ALT of 87 and alkaline phosphatase of 138. Urinalysis showed less than 15 mg/dL of urine proteins. These findings were discussed with the ED attending physician Dr. Jorge Alberto arce who advised that the patient be admitted by the LEAD [employer] TE[employer]IST physician because of preeclampsia since the patient does not have past medical history of hypertension. I paged and discussed the patient's findings with the patient's trustee of estate Ms. Nenita Coffman,working with Dr. Castaneda, the [employer] Physician sludge control operator who admitted the patient to the Labor and Delivery floor. Preliminary Admission orders were placed. ED Medical Decision Making - Lab Data Result diagrams: 09/29/18 19:13 09/29/18 19:13 - Radiology Data Radiology results: report reviewed, image reviewed Findings [facility] [address] [place] [address] Cat Scan Report Signed Patient: JAMES HERRING MR#: [id number] : 1990 Acct:[id number] Age/Sex: 27 / F ADM Date: 09/29/18 Loc: ED Attending Dr: Ordering Physician: LEONARD BRANCH Date of Service: 09/29/18 Procedure(s): CT lumbar spine wo con Accession Number(s): [id number] cc: LEONARD BRANCH CT LUMBAR SPINE WITHOUT CONTRAST HISTORY: Low back pain; epidural injection COMPARISON: None TECHNIQUE: CT images of the lumbar spine were obtained without contrast. Sagittal and coronal reformats were post-processed. All CT scans at this location are performed using CT dose reduction for ALARA by means of automated exposure control. CONTRAST: None. FINDINGS: Alignment: Normal. Vertebrae:No significant abnormality. No fracture. Disc Spaces: Nonlateralizing midline bulging discs are seen at L4-L5 and L5-S1 disc levels. Facet Joints:No significant abnormality. Additional Findings: Dorsal epidural space is normal. I do not see epidural hematoma. Dorsal epidural fat is seen normally at L1-L2, L2-L3, L3-L4 and L4-L5 levels. At L5-S1 level, I do not see epidural hematoma. Epidural fat at this level is not seen. May be the level of the epidural injection. IMPRESSION: I do not see epidural hematoma Nonlateralizing bulging disc at L4-L5 and L5-S1 levels Signer Name: Rey Romero MD Signed: 09/29/2018 8:05 PM Workstation Name: [id number] Transcribed By: BS Dictated By: Rey Yanez MD Electronically Authenticated By: Rey Yanez MD Signed Date/Time: 09/29/182004 - Medical Decision Making This is a 27-year-old -[place] female who is 4 days spontaneous vaginal delivery and who presented to the ED with severe headache, neck pain and low back pain for the last 3 days. Patient states that she had an epidural procedure during delivery in 2 places in her lower back. In the ED, patient is alert and oriented 3, and is not in distress except pain, and is hypertensive. Labs were drawn and Head CT scan without contrast shows no acute intracranial abnormalities or hemorrhage. L-spine CT scan without contrast shows no fractures, subluxations, and or epidural hematoma. There is however nonlateralizing bulging disc at L4-L5 and L5-S1 levels. Patient was treated for pain in the ED and on reevaluation, patient's pain is well-controlled with medications. On reevaluation, patient vital signs do show hypertension. Lab test results were reviewed and showed BUN of 26, AST of 49 and ALT of 87 and alkaline phosphatase of 138. Urinalysis showed less than 15 mg/dL of urine proteins. These findings were discussed with the ED attending physician Dr. Klein who advised that the patient be admitted by the LEAD [employer] TECHNOLOGIST physician because of preeclampsia since the patient does not have past medical history of hypertension. I paged and discussed the patient's findings with the patient's trustee of estate Nenitamark Coffman,working with Dr. Castaneda, the Viole[employer]aker Physician sludge control operator who admitted the patient to the Labor and Delivery floor. Preliminary Admission orders were placed. - Differential Diagnosis Post-epidural headache; cervical spasm; back pain; Preeclampsia Critical Care Time: Yes Critical care time in (mins) excluding proc time.: 45 Critical care attestation.: If time is entered above; I have spent that time in minutes in the direct care of this critically ill patient, excluding procedure time. ED Disposition Clinical Impression: Epidural anesthesia-induced headache during labor and delivery, Spasm of muscle of lower back, Cervical paraspinous muscle spasm, Preeclampsia in period Disposition: OP ADMIT IP TO THIS HOSP Is pt being admited?: Yes Does the pt Need Aspirin: No Condition: Stable Additional Instructions: Take medications with food, drink plenty of fluids and follow up with your primary care physician in 7-10 days for reevaluation. Return to the ED immedi ately if symptoms get worse. Prescriptions: Butalb/Acetamin/Caff 50-325-40 [Fioricet 50-325-40] 1 tab PO Q6HR PRN #15 tab PRN Reason: Headache Ketorolac [Toradol] 10 mg PO Q8H PRN #20 tablet PRN Reason: Pain tiZANidine [Zanaflex 4mg TAB] 4 mg PO Q8H PRN #21 tablet PRN Reason: Spasms Referrals: BRINDA DORSEY MD [Primary Care Provider] - 3-5 Days Time of Disposition: 21:48 Print Language: SERBIAN
[2018-09-29] MEDS ORDERED: MAGNESIUM SULFATE 2GM/50ML 2 GM/50 ML BAG IV ONE (23:43)
[2018-09-29] MEDS ORDERED: NORMODYNE IV ONE (23:43)
[2018-09-30] MEDS ORDERED: NACL 0.9% 1000 ML 1,000 ML ONE (00:20)
[2018-09-30] MEDS ORDERED: NACL 0.9% 1000 ML 1,000 ML IV ONE (00:23)
[2018-09-30 00:31] LABS: Bilirubin,Urine NEG (Negative); Blood,Urine MOD (Negative); Color,Urine Straw (Yellow); Mucus,Urine FEW /HPF; Protein,Urine <15 mg/dL mg/dL (Negative); Urobilinogen,Urine < 2.0 mg/dL (<2.0)
[2018-09-30] MEDS ORDERED: LACTATED RINGERS 1,000 ML ONE (04:16)
[2018-09-30] MEDS ORDERED: APRESOLINE ONE (04:22)
--- NOTE | 2018-09-30 04:45 | History and Physical Report ---
History of Present Illness Date of examination: 09/30/18 (pt transfered from ED PreE ) Date of admission: 09/30/18 02:14 Chief complaint: severe BRODERICK and back pain History of present illness: Phone Note Call from Patient Reason for Call: Acute Illness Action Taken: Phone Call Completed, Message sent to Provider, Patient advised to go to ER Summary of Call: 1248-Patient calling with c/o moderate back pain. Patient reports she delivered on 09/24/18 and she had an epidural. She is now having back pain and a headache that starts at neck and goes up. back pain is 8/10 per patient. Lorrie Coffman CNM notified of pt. Orders received for patient to go to ER at [facility] for evaluation. Notified patient of orders and she agrees with POC and verbalizes understanding. .......................... .........................................Valarie Culp September 28, 2018 12:56 PM Past History - Obstetrical History : 3 Para: 2 (last delivery 09/24/18) Number of Living Children: 2 Medications and Allergies Allergies Allergy/AdvReac Type Severity Reaction Status Date / Time No Known Allergies Allergy Verified 05/02/18 12:18 Home Medications Medication Instructions Recorded Confirmed Last Taken Type traMADol [Ultram 50 MG tab] 50 mg PO Q6HR PRN #20 tablet 03/27/14 09/24/18 Unknown Rx Ibuprofen [Motrin 600 MG tab] 600 mg PO Q8H PRN #30 tablet 04/17/15 09/24/18 Unknown Rx Nitrofurantoin [place]/M-Cryst 100 mg PO Q12HR #20 capsule 04/17/15 09/24/18 Unknown Rx [Macrobid CAP] Cyclobenzaprine [Flexeril] 10 mg PO TID PRN #20 tablet 01/06/17 09/24/18 Unknown Rx Ibuprofen [Motrin 800 MG tab] 800 mg PO TID PRN #15 tablet 01/06/17 09/24/18 Unknown Rx HYDROcodone/APAP 5-325 [[place] 1 each PO Q6HR PRN #10 tablet 05/26/17 09/24/18 Unknown Rx 5/325] Ibuprofen [Ibuprofen 800] 800 mg PO TID PRN #15 tablet 05/26/17 09/24/18 Unknown Rx Butalb/Acetamin/Caff 50-325-40 1 tab PO Q6HR PRN #15 tab 09/29/18 Unknown Rx [Fioricet 50-325-40] Ketorolac [Toradol] 10 mg PO Q8H PRN #20 tablet 09/29/18 Unknown Rx tiZANidine [Zanaflex 4mg TAB] 4 mg PO Q8H PRN #21 tablet 09/29/18 Unknown Rx Active Meds: Active Medications Sodium Chloride (Nacl 0.9% 1000 Ml) 1,000 mls @ 125 mls/hr IV ONCE ONE Stop: 09/30/18 08:22 Last Admin: 09/30/18 00:24 Dose: 125 mls/hr Documented by: Lactated Ringer's (Lactated Ringers) 1,000 mls @ 125 mls/hr IV DIRECT YOLANDA - Vital Signs Vital signs: Vital Signs Temp Pulse Resp BP Pulse Ox 98.6 F 62 19 182/107 99 09/29/18 19:03 09/29/18 19:03 09/29/18 19:03 09/29/18 19:03 09/29/18 19:03 Temp Pulse Resp BP Pulse Ox 98.2 F 74 18 163/103 100 09/30/18 03:38 09/30/18 04:42 09/30/18 03:38 09/30/18 04:36 09/30/18 04:42 - Physical Exam Breasts: Positive: normal Cardiovascular: Regular rate, Normal S1, Normal S2 Lungs: Positive: Clear to auscultation Abdomen: Positive: normal appearance, soft, normal bowel sounds. Negative: distention, tenderness Genitourinary (Female): Positive: normal external genitalia Vulva: both: normal Vagina: Positive: normal moisture. Negative: discharge Cervix: Negative: lesion, discharge Uterus: Positive: normal size, normal contour Adnexa: both: normal Anus/Rectum: Positive: normal perianal skin, heme negative. Negative: rectal mass, hemorrhoids Extremities: Positive: normal Deep Tendon Reflex Grade: Normal but brisk +3 Results Result Diagrams: 09/29/18 19:13 09/30/18 04:57 Abnormal lab results 09/29/18 09/29/18 Range/Units 19:13 19:13 [place] % (Auto) 9.4 H (0.0-7.3) % Potassium 3.5 L (3.6-5.0) mmol/L Chloride 108.2 H (98-107) mmol/L Carbon Dioxide 18 L (22-30) mmol/L BUN 26 H (7-17) mg/dL Glucose 115 H (65-100) mg/dL AST 49 H (5-40) units/L ALT 87 H (7-56) units/L Alkaline Phosphatase 138 H (35-129) units/L Albumin 3.1 L (3.9-5) g/dL All other labs normal. Assessment and Plan - Patient Problems (1) Preeclampsia in period Onset Date: ~09/29/18 Current Visit: Yes Status: Acute Plan to address problem: Pt called the office yesterday around noon c/o worsening BRODERICK and back pain since delivery that got severe in the morning. Pt was sent to the ED for evaluation. I received a call from ED @ 0200 Pt had elevated BPs 180/100, Mag bolus was given. Pt was transferred to L&D for treatment of PreE . Consulted with . Noted creatinine @ 1.2 will transfuse MGSO4 @ 1gm/hr with close m onitoring of urine out put. Labs ordered. Mag started @ 0542. Labetalol 200mg po BID started. Orders in EMR.
[2018-09-30] MEDS ORDERED: APRESOLINE IV ONE (04:48)
[2018-09-30] MEDS ORDERED: NORMODYNE IV ONE (04:48)
[2018-09-30] MEDS ORDERED: MAGNESIUM SULFATE 40GM/1000ML 40 GM/1,000 ML BAG IV SCH (05:00)
[2018-09-30] MEDS: LACTATED RINGERS 1,000 ML IV SCH ×2 (05:43→15:12)
[2018-09-30 05:58] LABS: Alanine Aminotransferase 89 units/L (7-56); Albumin 3.2 g/dL (3.9-5); BUN/Creatinine Ratio 21; Blood Urea Nitrogen 21 mg/dL (7-17); Calcium 8.4 mg/dL (8.4-10.2); Hemolysis Index 8
[2018-09-30] MEDS: NORMODYNE PO SCH ×4 (06:08→21:35)
--- NOTE | 2018-09-30 06:22 | Progress Note ---
Subjective Date of service: 09/30/18 Interval history: Called to evaluate patient for headache 5 days s/p spontaneous vaginal delivery with epidural. She is currently admitted for pre-eclampsia on Mg with elevated BP. No fever chills or signs of infection. No dural puncture reported during placement of epidural. A & O x3 neuro exam WNL. Complaint of neck stiffness which radiates into occiput. Pressure on the neck relieves the headache. Not positional, no photophobia. Discussed with patient do not believe this is PDPH. Patient states she would not want blood patch even if it was. Objective - Constitutional Vitals: Vital Signs - 12hr 09/29/18 09/29/18 09/30/18 19:03 22:25 00:06 Temperature 98.6 F 98.5 F Pulse Rate 62 66 63 Respiratory 19 16 Rate Blood Pressure 160/104 Blood Pressure 182/107 161/103 [Left] O2 Sat by Pulse 99 100 Oximetry 09/30/18 09/30/18 09/30/18 01:09 03:38 04:32 Temperature 98.2 F Pulse Rate 70 67 67 Respiratory 16 18 Rate Blood Pressure Blood Pressure 154/95 162/103 [Left] O2 Sat by Pulse 99 100 99 Oximetry 09/30/18 09/30/18 09/30/18 04:33 04:36 04:37 Temperature Pulse Rate 64 69 71 Respiratory Rate Blood Pressure 164/103 163/103 Blood Pressure [Left] O2 Sat by Pulse 100 Oximetry 09/30/18 09/30/18 09/30/18 04:42 04:47 04:52 Temperature Pulse Rate 74 79 77 Respiratory Rate Blood Pressure Blood Pressure [Left] O2 Sat by Pulse 100 100 100 Oximetry 09/30/18 09/30/18 09/30/18 04:57 05:02 05:03 Temperature Pulse Rate 73 71 72 Respiratory Rate Blood Pressure 166/105 Blood Pressure [Left] O2 Sat by Pulse 100 100 Oximetry 09/30/18 09/30/18 09/30/18 05:07 05:12 05:17 Temperature Pulse Rate 72 71 80 Respiratory Rate Blood Pressure Blood Pressure [Left] O2 Sat by Pulse 100 100 100 Oximetry 09/30/18 09/30/18 09/30/18 05:22 05:27 05:32 Temperature Pulse Rate 81 84 94 H Respiratory Rate Blood Pressure 141/87 Blood Pressure [Left] O2 Sat by Pulse 100 100 100 Oximetry 09/30/18 09/30/18 09/30/18 05:37 05:40 05:42 Temperature Pulse Rate 88 72 85 Respiratory Rate Blood Pressure Blood Pressure [Left] O2 Sat by Pulse 99 99 Oximetry 09/30/18 09/30/18 09/30/18 05:47 05:52 05:58 Temperature Pulse Rate 84 85 83 Respiratory Rate Blood Pressure Blood Pressure [Left] O2 Sat by Pulse 99 99 99 Oximetry 09/30/18 09/30/18 09/30/18 06:02 06:07 06:08 Temperature Pulse Rate 86 86 86 Respiratory Rate Blood Pressure 134/86 Blood Pressure [Left] O2 Sat by Pulse 99 99 Oximetry 09/30/18 06:12 Temperature Pulse Rate 85 Respiratory Rate Blood Pressure Blood Pressure [Left] O2 Sat by Pulse 99 Oximetry - Labs CBC & Chem 7: 09/29/18 19:13 09/30/18 04:57 Labs: Abnormal lab results 09/29/18 09/29/18 09/30/18 Range/Units 19:13 19:13 04:57 [place] % (Auto) 9.4 H (0.0-7.3) % Sodium 147 H (137-145) mmol/L Potassium 3.5 L 3.4 L (3.6-5.0) mmol/L Chloride 108.2 H 110.9 H (98-107) mmol/L Carbon Dioxide 18 L 21 L (22-30) mmol/L BUN 26 H 21 H (7-17) mg/dL Glucose 115 H (65-100) mg/dL AST 49 H 44 H (5-40) units/L ALT 87 H 89 H (7-56) units/L Alkaline Phosphatase 138 H (35-129) units/L Total Protein 6.2 L (6.3-8.2) g/dL Albumin 3.1 L 3.2 L (3.9-5) g/dL
--- NOTE | 2018-09-30 08:02 | Event Note ---
Date: 09/30/18 Pt admitted for pp preE. BP is improved with iv and po meds. Continue to closely monitor.
[2018-09-30] MEDS ORDERED: TYLENOL ONE (11:32)
[2018-09-30] MEDS: TYLENOL PO PRN ×2 (11:35→16:54)
[2018-09-30] MEDS ORDERED: AMBIEN PO PRN (20:59)
[2018-09-30] MEDS: IBUPROFEN PO PRN (21:34)
[2018-10-01] MEDS: LACTATED RINGERS 1,000 ML IV SCH (00:37)
[2018-10-01] MEDS: TYLENOL PO PRN (04:03)
[2018-10-01] MEDS ORDERED: MILK OF MAGNESIA PO PRN (06:00)
[2018-10-01] MEDS ORDERED: DULCOLAX PR PRN (06:00)
[2018-10-01] MEDS ORDERED: BENADRYL PO PRN (06:00)
[2018-10-01] MEDS ORDERED: TUCKS PAD TP PRN (06:00)
[2018-10-01] MEDS ORDERED: ZOFRAN IV PRN (06:00)
--- NOTE | 2018-10-01 06:08 | Event Note ---
Date: 10/01/18 (MGSO4 X 24 hours completed; transfer to /B) Pt states she is feeling much better BRODERICK is very much improved, c/o some soreness in her neck but that has improved with a hot pack. BPs remain 150-140/90 will closely monitor Continue Labetalol 200mg po BID. Transfer orders done to /B
--- NOTE | 2018-10-01 08:22 | Progress Note ---
<PAULA ASIF - Last Filed: 10/01/18 08:17> Assessment and Plan Patient recently transferred to unit, resting in bed with lights on. She reports a mild headache and mild neck pain. She reports neck pain and headache relieved when she applies pressure to the back of her neck. She denies any visual disturbances, RUQ pain/epigastric pain, or any other complaints. DTRs 2+, assessment WNL. Lochia scant. Pt reports she is bottle feeding infant at home, denies any breast complaints other than engorgement, discussed breast care and danger signs to report. Reviewed POC with pt, will monitor BPs with PO labetalol today s/p magnesium. Pt aware to notify RN of any changes in assessment or worsening of BRODERICK/neck pain. BPs 130-150/70-90 since mag d/c. Subjective - Subjective Date of service: 10/01/18 Principal diagnosis: PP readmission for HTN, magnesium Patient reports: appetite normal, voiding normally, pain well controlled (mild BRODERICK, mild neck pain), ambulating normally [place]: other (at home) Objective - Vital Signs Latest vital signs: Vital Signs Temp Pulse Resp BP BP BP Pulse Ox 10/01/18 06:46 79 146/93 10/01/18 05:45 81 152/97 10/01/18 05:32 81 146/94 10/01/18 04:48 76 147/93 10/01/18 04:46 75 147/91 10/01/18 04:03 18 10/01/18 03:45 98.6 F 83 16 134/78 152/87 10/01/18 02:46 83 152/87 10/01/18 01:46 78 150/83 10/01/18 00:45 79 144/85 10/01/18 00:15 76 142/81 09/30/18 23:45 98.6 F 85 16 139/79 139/79 09/30/18 23:15 81 139/78 09/30/18 22:45 84 146/86 09/30/18 22:15 79 129/75 09/30/18 21:45 82 141/84 09/30/18 21:35 84 146/91 09/30/18 21:34 80 146/91 09/30/18 21:33 83 99 09/30/18 20:45 90 124/71 09/30/18 20:15 91 H 121/68 09/30/18 19:45 98.4 F 86 16 133/75 133/75 09/30/18 19:15 85 140/88 09/30/18 18:45 83 129/77 09/30/18 18:15 93 H 121/67 09/30/18 18:11 98.7 F 09/30/18 17:45 93 H 131/71 09/30/18 17:15 90 135/78 09/30/18 16:45 93 H 126/68 09/30/18 16:15 82 150/87 09/30/18 15:45 77 159/96 09/30/18 15:15 75 161/90 09/30/18 14:45 81 138/82 09/30/18 14:15 78 154/91 09/30/18 13:45 78 160/94 09/30/18 13:15 76 138/78 09/30/18 12:45 77 141/81 09/30/18 12:15 76 134/76 09/30/18 11:45 80 129/80 09/30/18 11:35 150/88 09/30/18 11:15 83 150/88 09/30/18 10:45 80 123/74 09/30/18 10:15 84 134/78 09/30/18 09:49 107/63 09/30/18 09:45 84 107/63 09/30/18 09:15 82 122/77 09/30/18 08:58 98.3 F 74 15 125/73 09/30/18 08:45 78 125/73 09/30/18 08:33 95 H 97 09/30/18 08:28 91 H 97 09/30/18 08:23 82 98 09/30/18 08:18 82 98 Intake and Output 09/30/18 10/01/18 10/01/18 23:59 07:59 15:59 Intake Total 1310 1412.917 Output Total 2150 1400 Balance -840 12.917 Intake: IV 1010 1262.917 Lactated Ringers 1,000 ml 1000 650 @ 125 mls/hr IV DIRECT YOLANDA Rx#:[id number] MAGNESIUM SULFATE 40GM/ 602.917 1000ML 40 gm In 1,000 ml @ 1 GM/HR 25 mls/hr IV DIRECT YOLANDA Rx#:[id number] Right Hand 10 10 Oral 300 150 Output: Urine 2150 1400 Indwelling Catheter 2150 1400 Other: Total, Intake Amount 100 150 Total, Output Amount 1000 600 - Exam Breasts: Present: normal (engorged, pt bottle feeding , breast care discussed) Cardiovascular: Present: Regular rate, Normal S1, Normal S2 Lungs: Present: Clear to auscultation, Normal air movement Abdomen: Present: normal appearance, soft, normal bowel sounds Vulva: both: normal Extremities: Present: normal - Labs Labs: Abnormal lab results 09/30/18 09/30/18 10/01/18 Range/Units 11:51 17:56 00:30 Magnesium 3.80 H 4.40 H 4.60 H (1.7-2.3) mg/dL <RAYNE ESCOBEDO D - Last Filed: 10/01/18 09:25> Assessment and Plan Pt sitting in bed w/o acute distress noted. Reports "I feel better but my head and neck still hurts". Denies blurry vision, chest pain. RN reports pt has dizziness w/ ambulation. Will recheck H/H. Order CT w/o contrast of head and neck. Pt informed of POC and agrees. Objective - Vital Signs Latest vital signs: Vital Signs Temp Pulse Resp BP BP BP Pulse Ox 10/01/18 06:46 79 146/93 10/01/18 05:45 81 152/97 10/01/18 05:32 81 146/94 10/01/18 04:48 76 147/93 10/01/18 04:46 75 147/91 10/01/18 04:03 18 10/01/18 03:45 98.6 F 83 16 134/78 152/87 10/01/18 02:46 83 152/87 10/01/18 01:46 78 150/83 10/01/18 00:45 79 144/85 10/01/18 00:15 76 142/81 09/30/18 23:45 98.6 F 85 16 139/79 139/79 09/30/18 23:15 81 139/78 09/30/18 22:45 84 146/86 09/30/18 22:15 79 129/75 09/30/18 21:45 82 141/84 09/30/18 21:35 84 146/91 09/30/18 21:34 80 146/91 09/30/18 21:33 83 99 09/30/18 20:45 90 124/71 09/30/18 20:15 91 H 121/68 09/30/18 19:45 98.4 F 86 16 133/75 133/75 09/30/18 19:15 85 140/88 09/30/18 18:45 83 129/77 09/30/18 18:15 93 H 121/67 09/30/18 18:11 98.7 F 09/30/18 17:45 93 H 131/71 09/30/18 17:15 90 135/78 09/30/18 16:45 93 H 126/68 09/30/18 16:15 82 150/87 09/30/18 15:45 77 159/96 09/30/18 15:15 75 161/90 09/30/18 14:45 81 138/82 09/30/18 14:15 78 154/91 09/30/18 13:45 78 160/94 09/30/18 13:15 76 138/78 09/30/18 12:45 77 141/81 09/30/18 12:15 76 134/76 09/30/18 11:45 80 129/80 09/30/18 11:35 150/88 09/30/18 11:15 83 150/88 09/30/18 10:45 80 123/74 09/30/18 10:15 84 134/78 09/30/18 09:49 107/63 09/30/18 09:45 84 107/63 Intake and Output 09/30/18 10/01/18 10/01/18 22:59 06:59 14:59 Intake Total 210 2512.917 Output Total 1750 2400 Balance -1540 112.917 Intake: IV 10 2262.917 Lactated Ringers 1,000 ml 1650 @ 125 mls/hr IV DIRECT YOLANDA Rx#:[id number] MAGNESIUM SULFATE 40GM/ 602.917 1000ML 40 gm In 1,000 ml @ 1 GM/HR 25 mls/hr IV DIRECT YOLANDA Rx#:[id number] Right Hand 10 10 Oral 200 250 Output: Urine 1750 2400 Indwelling Catheter 1750 2400 Other: Total, Intake Amount 200 150 Total, Output Amount 650 600 - Labs Labs: Abnormal lab results 09/30/18 09/30/18 10/01/18 Range/Units 11:51 17:56 00:30 Magnesium 3.80 H 4.40 H 4.60 H (1.7-2.3) mg/dL
[2018-10-01] MEDS: NORMODYNE PO SCH ×2 (09:59→21:50)
[2018-10-01] MEDS: IBUPROFEN PO PRN ×2 (10:00→19:38)
--- NOTE | 2018-10-01 10:49 | Cat Scan Report ---
CT HEAD WITHOUT CONTRAST INDICATION / CLINICAL INFORMATION: Persistent headaches. TECHNIQUE: Axial imaging performed from the skull apex through the skull base without the use of cont rast. Sagittal and coronal reformatted images. All CT scans at this location are performed using CT dose reduction for ALARA by means of automated exposure control. COMPARISON: None available. FINDINGS: CEREBRAL PARENCHYMA: No significant abnormality. No acute territorial infarct. HEMORRHAGE: None. EXTRA-AXIAL SPACES: Normal in size and morphology for the patient's age. VENTRICULAR SYSTEM: Normal in size and morphology for the patient's age. MIDLINE SHIFT OR HERNIATION: None. CEREBELLUM / BRAINSTEM: No significant abnormality. CALVARIUM: No significant abnormality. ORBITS: Normal as visualized. PARANASAL SINUSES / MASTOID AIR CELLS: Normal as visualized. SOFT TISSUES of HEAD: No significant abnormality. ADDITIONAL FINDINGS: None. IMPRESSION: Normal CT head. Signer Name: Osorio Garay Jr, MD Signed: 10/01/2018 10:45 AM Workstation Name: [id number]
--- NOTE | 2018-10-01 10:57 | Cat Scan Report ---
CT NECK WITHOUT CONTRAST TECHNIQUE: Helical CT with sagittal and coronal reformatted images. All CT scans at this location are performed using CT dose reduction for ALARA by means of automated exposure control. HISTORY: Persistent neck pain 2-3 days after delivery. COMPARISON: None. FINDINGS: There is mild reversal of the normal cervical lordosis which could be secondary to positioning of the patient or muscular spasm. The cervical vertebral bodies and posterior elements are within normal li mits otherwise. No degenerative changes. The structures of the upper aerodigestive tract are normal. No evidence for inflammatory changes, mas s or abscess. No adenopathy. The imaged brain and sinuses are normal. Moderate layering pleural effusions are identified at the lung apices. IMPRESSION: Essentially unremarkable CT of the neck. Mild reversal of the normal cervical lordosis which could be secondary to positioning or spasm. Bilateral pleural effusions are partially imaged at the lung apices. Signer Name: Osorio Garay Jr, MD Signed: 10/01/2018 10:53 AM Workstation Name: [id number]
--- NOTE | 2018-10-01 15:59 | XRay Report ---
CHEST 2 VIEWS INDICATION: evaluate for pleural effusion. COMPARISON: FINDINGS: Support devices: None. Heart: Within normal limits. Lungs: Mild diffuse interstitial markings present. Pleura: No significant pleural effusion. No pneumothorax. Additional findings: None. IMPRESSION: 1. Mild diffuse interstitial markings, mild inflammatory process should be considered Signer Name: Yamil Conley MD Signed: 10/01/2018 3:55 PM Workstation Name: [id number]
[2018-10-02] MEDS ORDERED: LASIX IV ONE ×2 (00:43→04:30)
[2018-10-02] MEDS ORDERED: APRESOLINE IV ONE ×2 (00:48→13:42)
--- NOTE | 2018-10-02 01:24 | Event Note ---
Date: 10/02/18 RN called to notify provider of pt c/o SOB and cough. Upon evaluation by RN, BPS noted to be 170s/100s. Ordered to place pt on cont. pulse ox and assess lung sounds. O2 97% on room air. When I arrived to bedside, patient crying, asking "why can't I go home, my BP is fine, whats going on with me?" Patient reports she started feeling SOB and noticed cough after first dose of PO labetalol at 10 am yesterday. She denies chest pain, BRODERICK, visual disturbances, or any other complaints. Lung sounds are clear in all lobes while sitting upright. Apical pulse is 70bpm. While finishing assessment, called urgently to attend delivery in L&D. Dr. Castaneda notified of patient complaint and assessment. She spoke with RN and gave orders for hydralazine, IV abx, labs, imaging; see EMR. Will continue to assess BP and patient assessment. Pt remains on cont. pox. RN to call with any abnormal values, images, or assessments.
[2018-10-02 01:35] LABS: Hematocrit 37.7 % (30.3-42.9); Hemoglobin 12.5 gm/dl (10.1-14.3); Mean Corpuscular HGB Conc 33 % (30-34); Mean Corpuscular Volume 90 fl (79-97); Platelet Count 232 K/mm3 (140-440); Red Blood Count 4.19 M/mm3 (3.65-5.03); Red Cell Distribution Width 14.4 % (13.2-15.2)
[2018-10-02 01:53] LABS: Alanine Aminotransferase 59 units/L (7-56); Albumin 3.3 g/dL (3.9-5); BUN/Creatinine Ratio 13; Blood Urea Nitrogen 12 mg/dL (7-17); Hemolysis Index 1
--- NOTE | 2018-10-02 02:17 | Cat Scan Report ---
CTA chest with contrast INDICATION : evaluate for PE. Generalized shortness of breath since earlier today TECHNIQUE: Axial imaging performed through the chest, with contrast bolus timing set to maximize opa cification of the pulmonary arteries. 3-plane MIP reformatted images were obtained. All CT scans at this location are performed using CT dose reduction for ALARA by means of automated exposure control. 100 mL of intravenous contrast administered. COMPARISON: None FINDINGS: Bolus: Contrast bolus timing is adequate. PTE: No filling defect is present to suggest PTE. Mediastinum: Heart and great vessels appear normal. No pathologic mediastinal adenopathy. Lungs: Mild edema with small bilateral pleural effusions with mild bibasilar. Upper abdomen: Limited imaging of the upper abdomen shows nothing acute. Bones: No acute osseous abnormality. IMPRESSION: 1. Negative for PTE. 2. Mild edema with small bilateral effusions. Signer Name: Ayan Coleman MD Signed: 10/02/2018 2:12 AM Workstation Name: [id number]
[2018-10-02] MEDS ORDERED: NACL 0.9% 500 ML 500 ML IV SCH (02:25)
[2018-10-02] MEDS: ROCEPHIN/NS 2 GM/100 ML 2 GM/100 ML BAG IV SCH (03:02)
[2018-10-02] MEDS: IBUPROFEN PO PRN ×3 (03:19→18:40)
[2018-10-02] MEDS: ZITHROMAX 500 MG in NACL 0.9% 250ML 250 ML IV SCH (03:49)
[2018-10-02] MEDS ORDERED: NORMODYNE PO SCH ×4 (07:22→10:00)
--- NOTE | 2018-10-02 08:08 | Event Note ---
Date: 10/02/18 Late entry: 0120- Called [facility] unit to speak to RN for update on patient status and updated BP result, spoke with charge nurse who reported RN was in assisting with transferring pt for stat imaging as ordered by Dr. Castaneda. Asked CN if she was aware if IV hydralazine was given yet and if BP had been rechecked prior to transferring pt. She states that labs have been drawn but she is unaware what other orders have been completed. Number to directly call RN received, but no answer. 0218- Called RN again to check status of patient. She reports patient just returned to room from imaging. She reports IV hydralazine was not given and BP was not rechecked prior to imaging being done. RN instructed to check BP now, give hydralazine as ordered if BP >160/100, recheck 15 minutes later and call provider with BP result, as instructed by Dr. Castaneda and as stated in order. RN agrees and states she will call Dr. Castaneda with f/u BP after medication given. RN reports imaging results will not be available for "at least 30 minutes" and no other results available yet at this time to report. Instructed RN to notify provider with any abnormalities in lab values, assessment, or reports.
--- NOTE | 2018-10-02 08:12 | Progress Note ---
Assessment and Plan patient reports feeling better, states pain has greatly improved. She denies SOB, cough, neck/back pain, denies BRODERICK, visual changes or epigastric pain. b/p's remain elevated 150-160's/90-100's. Will increase labetalol from 200 BID to 300 BID and continue to monitor. O2 sat 100% with low flow NC, remove and oxygen sat remained 98-99% on RA. Will continue to monitor closely. - Patient Problems (1) Preeclampsia in period Onset Date: ~09/29/18 Current Visit: Yes Status: Acute Plan to address problem: increase dose of labetalol Continue to monitor LFTs improved since admission (2) Back pain Current Visit: Yes Status: Acute Qualifiers: Back pain location: back pain in unspecified location Chronicity: acute Plan to address problem: CTA scan noted pulmonary effusion and mild pulmonary edema Neg for PE Pt reports pain is greatly improved this morning (3) Neck pain Current Visit: Yes Status: Acute Plan to address problem: CT scan negative Pt reports pain greatly improved today Continue b/p management Subjective - Subjective Date of service: 10/02/18 (Band Cutting Machine Operator note) Principal diagnosis: day #8; readmission for pre-e Patient reports: appetite normal, voiding normally, pain well controlled, flatus, bowel movement, ambulating normally, no dizzy ambulation, no nauseated : other (infant in room, being cared for by s/o) Objective - Vital Signs Latest vital signs: Vital Signs Temp Pulse Resp BP BP BP Pulse Ox 10/02/18 04:40 74 156/104 10/02/18 03:40 73 150/96 10/02/18 03:30 68 163/102 10/02/18 02:45 69 164/96 10/02/18 02:35 62 178/101 10/02/18 02:30 99.9 F H 62 178/101 10/02/18 00:05 68 179/113 10/02/18 00:03 99.3 F 68 20 177/105 97 10/01/18 21:50 83 159/98 10/01/18 20:58 98.7 F 80 20 159/98 97 10/01/18 19:38 20 10/01/18 16:28 99.0 F 72 18 167/99 99 10/01/18 12:43 98.0 F 66 18 158/98 97 10/01/18 10:00 18 Intake and Output 10/01/18 10/02/18 10/02/18 23:59 07:59 15:59 Intake Total 840 Output Total 900 Balance 840 -900 Intake: Oral 600 Intake, Free Water 240 Output: Urine 900 Void 900 Other: Total, Intake Amount 600 Total, Output Amount 500 # Voids Void 2 1 - Exam Breasts: Present: normal Cardiovascular: Present: Regular rate Lungs: Present: Clear to auscultation, Normal air movement Abdomen: Present: normal appearance, soft Extremities: Present: normal - Labs Labs: Abnormal lab results 10/02/18 Range/Units 01:18 Potassium 3.2 L (3.6-5.0) mmol/L Calcium 8.0 L (8.4-10.2) mg/dL ALT 59 H (7-56) units/L Albumin 3.3 L (3.9-5) g/dL
[2018-10-02] MEDS ORDERED: ROCEPHIN/NS 2 GM/100 ML 2 GM/100 ML BAG IV SCH (10:00)
[2018-10-02] MEDS ORDERED: ZITHROMAX 500 MG in NACL 0.9% 250ML 250 ML IV SCH (10:00)
[2018-10-02] MEDS: NORMODYNE PO SCH ×2 (10:48→22:38)
--- NOTE | 2018-10-02 13:48 | Event Note ---
Date: 10/02/18 Pt c/o having palpitations with taking the bp meds. I d/w that we can consult medicine team for options in changing her medications. She is not currently breast feeding. Last bp was elevated and hydralazine will be given now. I d/w plan of care as well as findings on current studies and labs. Pt and s/o asked several questions all of which were addressed and answered.
[2018-10-03] MEDS: DIOVAN PO SCH ×2 (00:27→09:38)
[2018-10-03] MEDS: ROCEPHIN/NS 2 GM/100 ML 2 GM/100 ML BAG IV SCH (00:33)
--- NOTE | 2018-10-03 02:45 | Event Note ---
Date: 10/02/18 See H/p consult in reports Htn Patient not going to breast feed Valsartan 80 mg po qd
--- NOTE | 2018-10-03 03:02 | Consultation ---
MEDICAL CONSULT. REASON FOR MEDICAL CONSULT: Management of hypertension. HISTORY OF PRESENT ILLNESS: A 27-year-old female admitted for back pain and headache. The patient had a recent epidural. The patient was noted to have high blood pressure. Not on any blood pressure medicine. The patient had a delivery and has a 1-week old baby. The patient does not want to do any breast feeding. She wants to go on regular blood pressure medications. OBSTETRICAL HISTORY: 3, para 2. Last delivery being on 09/24/2018. Number of living children, 2. PAST MEDICAL HISTORY: Hypertension. PAST SURGICAL HISTORY: Not available. SOCIAL HISTORY: Does not smoke. FAMILY HISTORY: Hypertension. PHYSICAL EXAMINATION: GENERAL: Young female, cooperative during examination. VITAL SIGNS: Blood pressure is 156/95, temperature is 98.8, pulse is 99.8. HEENT: Unremarkable. Pupils equal and reactive. NECK: Supple, no lymphadenopathy, no thyromegaly. LUNGS: Clear to auscultation and percussion. Good air entry. CARDIOVASCULAR: S1, S2 heard. No gallop, no murmur, no rub. Apical impulse in left fifth intercostal space and midclavicular line. ABDOMEN: Soft and benign. No hepatosplenomegaly. No guarding, no rigidity. Hernial orifices are normal. EXTREMITIES: Good pedal pulses. No pedal edema. LABORATORY DATA: Significant for sodium of 147, which has come down to 142, potassium is 3.4, slightly low, BUN and creatinine 21 and 1.0, AST is 44, ALT is 89. Total protein is 6.2, albumin is 3.2. ASSESSMENT AND PLAN: 1. Hypertension. The patient is started on valsartan 80 mg once a day. The patient to be discharged on valsartan 80 mg once a day. The patient is not going to breastfeed, hence valsartan is safe. The patient is also not going to have any future pregnancies. Valsartan will be continued into adulthood. 2. Hypernatremia secondary to dehydration, improved to 142. 3. Hypokalemia, supplemented. 4. Deep venous thrombosis prophylaxis, sequential compression devices, and gastrointestinal prophylaxis. JOB# [id number] VSM/NTS
[2018-10-03] MEDS ORDERED: K-DUR PO ONE (03:30)
[2018-10-03] MEDS: ZITHROMAX 500 MG in NACL 0.9% 250ML 250 ML IV SCH (03:36)
[2018-10-03] MEDS ORDERED: ROCEPHIN/NS 2 GM/100 ML 2 GM/100 ML BAG IV SCH (06:00)
[2018-10-03] MEDS: TYLENOL PO PRN ×2 (06:39→17:24)
--- NOTE | 2018-10-03 08:50 | Progress Note ---
Assessment and Plan Patient resting in bed, s/o at bedside. Patient reports feeling well this morning. She denies any SOB, difficulty breathing, cough, visual disturbances, RUQ/epigastric pain. She reports a very mild lingering headache and dull neck pain since admission but stated "it's a lot better than before". Reviewed recent BPs with patient and change in medications per hospitalist who is now managing this. She voiced concern for safety of taking "this much medication". DWP safety profiles of her current medications and side effects, also weighing risks vs benefits of medications; risks of maintaining elevated BPs without management such as stroke, heart attack, aneurism, kidney disease/failure, etc. Patient and s/o verbalize understanding. Continue current POC at this time. (1) Preeclampsia in period Onset Date: ~09/29/18 Current Visit: Yes Status: Acute Plan to address problem: Currently on 300mg labetalol BID and valsartan 80 mg qd per hospitalist Continue to monitor LFTs improved since admission (2) Shortness of breath/Difficulty breathing Current Visit: Yes Status: Acute Qualifiers: Back pain location: back pain in unspecified location Chronicity: acute Plan to address problem: CTA scan noted pulmonary effusion and mild pulmonary edema Neg for PE Pt reports symptoms greatly improved this morning since onset (3) Neck pain/Headache Current Visit: Yes Status: Acute Plan to address problem: CT scan negative Pt reports pain greatly improved since admission Continue b/p management per hospitalist Subjective - Subjective Date of service: 10/03/18 Principal diagnosis: day #9; readmission for pre-e Patient reports: appetite normal, voiding normally, pain well controlled, ambulating normally : doing well (at home with family member) Objective - Vital Signs Latest vital signs: Vital Signs Temp Pulse Resp BP BP BP Pulse Ox 10/03/18 07:54 98.5 F 18 170/111 10/03/18 07:17 16 10/03/18 06:39 18 10/03/18 06:20 98.6 F 66 20 146/88 96 10/03/18 00:39 98.8 F 75 18 151/97 98 10/03/18 00:27 72 152/99 10/02/18 22:44 72 18 152/99 10/02/18 22:38 68 160/103 10/02/18 20:26 99.8 F H 70 18 156/95 100 10/02/18 19:40 18 10/02/18 16:27 98.1 F 67 18 156/98 10/02/18 13:57 151/94 10/02/18 12:47 99.7 F H 67 18 169/104 10/02/18 09:06 98.3 F 73 18 151/99 Intake and Output 10/02/18 10/03/18 10/03/18 23:59 07:59 15:59 Intake Total 850 850 Output Total 500 400 Balance 350 450 Intake: IV 10 10 Right Hand 10 10 Oral 480 120 Intake, Free Water 360 720 Output: Urine 500 400 Void 500 400 Other: Total, Intake Amount 480 120 Total, Output Amount 500 400 # Voids Void 1 1 - Exam Cardiovascular: Present: Regular rate, Normal S1, Normal S2 Lungs: Present: Clear to auscultation, Normal air movement Abdomen: Present: normal appearance, soft, normal bowel sounds Vulva: both: normal Uterus: Present: normal, fundal height below umbilicus Extremities: Present: normal Deep Tendon Reflex Grade: Normal +2
[2018-10-03] MEDS ORDERED: K-DUR PO NR ×2 (09:15→09:17)
--- NOTE | 2018-10-03 09:38 | Progress Note ---
Assessment and Plan Assessment and plan: Patient is a 27 yo woman without chronic medical condition prior to delivery of a healthy baby girl on 09/24/2018 who presented to [facility] on 09/29/18 with headaches and back pains to the neck pains. Hospitalist consulted on 10/02/18 for bp management. Patient is not or breast pumping for feedings, so Dr. Villa started on Valsartan and Labetolol. Patient feels the labetolol may worsen the headaches and may be associated with SOB and edema which are common side effects of Labetalol. The IV lasix x1 did help. A CTA was negative for PE, pneumonia but did show pulmonary mild edema which was helped by the IV lasix. CT neck did not show any acute cervical abnormalities. I stopped the IV rocephin and IV azithromycin unlikely pneumonia. * CTA chest IMPRESSION: 1. Negative for PTE. 2. Mild edema with small bilateral effusions. Uncontrolled hypertension with Urgency: stop labetalol due to side effects. Start oral hydralazine and low dose lasix with potassium daily. Hypokalemia: replete and recheck Dyspnea due to the Pulmonary Edema, either Cardiomyopathy/BP malignancy due to CM vs medication induced vs other: Ordered ECHO d/w patient. Hypernatremia: treated and stable, monitor bmp closely Elevated Transamines all improving, suspect related to , only abnormality now is ALT is 59 and normal is up to 56. History Interval history: Patient was seen and examined. Follow-up on current diagnosis. No overnight events reported to me. Patient denies any chest pain, shortness breath, nausea/vomiting or severe headaches. Imaging, nursing note, chart, labs and old chart reviewed. Discussed with patient. Hospitalist Physical - Physical exam Narrative exam: Gen: WDWN, NAD, Awake, Alert, Orientated HEENT: NCAT, EOMI, PERRL, OP Clear Neck: supple, no adenopathy, no thyromegaly, no JVD CVS/Heart: RRR, normal S1S2, pulses present bilaterally Chest/Lungs: CTA B, Symmetrical chest expansion, good air entry bilaterally GI/Abdomen: soft, NTND, good bowel sounds, no guarding or rebound /Bladder: no suprapubic tenderness, no CVA or paraspinal tenderness Extermity/Skin: no c/c/e, no obvious rash MSK: FROM x 4 Neuro: CN 2-12 grossly intact, no new focal deficits Psych: calm - Constitutional Vitals: Temp Pulse Resp BP Pulse Ox 98.5 F 66 18 155/110 96 10/03/18 07:54 10/03/18 06:20 10/03/18 07:54 10/03/18 08:25 10/03/18 06:20 Results - Labs CBC & Chem 7: 10/02/18 01:18 10/02/18 01:18 Labs: Laboratory Last Values WBC 7.8 K/mm3 (4.5-11.0) 10/02/18 01:18 RBC 4.19 M/mm3 (3.65-5.03) 10/02/18 01:18 Hgb 12.5 gm/dl (10.1-14.3) 10/02/18 01:18 Hct 37.7 % (30.3-42.9) 10/02/18 01:18 MCV 90 fl (79-97) 10/02/18 01:18 MCH 30 pg (28-32) 10/02/18 01:18 MCHC 33 % (30-34) 10/02/18 01:18 RDW 14.4 % (13.2-15.2) 10/02/18 01:18 Plt Count 232 K/mm3 (140-440) 10/02/18 01:18 Lymph % (Auto) 23.6 % (13.4-35.0) 09/29/18 19:13 [place] % (Auto) 9.4 % (0.0-7.3) H 09/29/18 19:13 Eos % (Auto) 3.9 % (0.0-4.3) 09/29/18 19:13 Baso % (Auto) 0.4 % (0.0-1.8) 09/29/18 19:13 Lymph # 2.1 K/mm3 (1.2-5.4) 09/29/18 19:13 [place] # 0.8 K/mm3 (0.0-0.8) 09/29/18 19:13 Eos # 0.3 K/mm3 (0.0-0.4) 09/29/18 19:13 Baso # 0.0 K/mm3 (0.0-0.1) 09/29/18 19:13 Seg Neutrophils % 62.7 % (40.0-70.0) 09/29/18 19:13 Seg Neutrophils # 5.6 K/mm3 (1.8-7.7) 09/29/18 19:13 PT 13.0 Sec. (12.2-14.9) 09/29/18 19:13 INR 1.01 (0.87-1.13) 09/29/18 19:13 APTT 28.3 Sec. (24.2-36.6) 09/29/18 19:13 Sodium 142 mmol/L (137-145) 10/02/18 01:18 Potassium 3.2 mmol/L (3.6-5.0) L 10/02/18 01:18 Chloride 105.5 mmol/L (98-107) 10/02/18 01:18 Carbon Dioxide 24 mmol/L (22-30) 10/02/18 01:18 16 mmol/L 10/02/18 01:18 BUN 12 mg/dL (7-17) 10/02/18 01:18 0.9 mg/dL (0.7-1.2) 10/02/18 01:18 Estimated GFR > 60 ml/min 10/02/18 01:18 13 % 10/02/18 01:18 Glucose 92 mg/dL (65-100) 10/02/18 01:18 Calcium 8.0 mg/dL (8.4-10.2) L 10/02/18 01:18 Magnesium 4.60 mg/dL (1.7-2.3) H 10/01/18 00:30 0.40 mg/dL (0.1-1.2) 10/02/18 01:18 AST 19 units/L (5-40) 10/02/18 01:18 ALT 59 units/L (7-56) H 10/02/18 01:18 87 units/L (35-129) 10/02/18 01:18 6.3 g/dL (6.3-8.2) 10/02/18 01:18 3.3 g/dL (3.9-5) L 10/02/18 01:18 1.1 % 10/02/18 01:18 Straw (Yellow) 09/29/18 Unknown Clear (Clear) 09/29/18 Unknown 5.0 (5.0-7.0) 09/29/18 Unknown Ur Specific [place] 1.008 (1.003-1.030) 09/29/18 Unknown <15 mg/dl mg/dL (Negative) 09/29/18 Unknown Neg mg/dL (Negative) 09/29/18 Unknown Neg mg/dL (Negative) 09/29/18 Unknown Mod (Negative) 09/29/18 Unknown Neg (Negative) 09/29/18 Unknown Neg (Negative) 09/29/18 Unknown < 2.0 mg/dL (<2.0) 09/29/18 Unknown Ur Leukocyte Esterase Neg (Negative) 09/29/18 Unknown 3.0 /HPF (0.0-6.0) 09/29/18 Unknown 2.0 /HPF (0.0-6.0) 09/29/18 Unknown U Epithel Cells (Auto) < 1.0 /HPF (0-13.0) 09/29/18 Unknown Few /HPF 09/29/18 Unknown Active Medications - Current Medications Current Medications: Generic Name Dose Route Start Last Admin Trade Name Freq PRN Reason Stop Dose Admin Acetaminophen 650 mg 09/30/18 11:26 10/03/18 06:39 Tylenol PO 650 mg Q4H PRN Administration Pain, Mild (1-3) Bisacodyl 10 mg 10/01/18 06:00 Dulcolax DE BID PRN Constipation Diphenhydramine HCl 25 mg 10/01/18 06:00 Benadryl PO Q6H PRN Itching Furosemide 20 mg 10/03/18 10:00 Lasix PO QDAY YOLANDA Hydralazine HCl 25 mg 10/03/18 10:00 Apresoline PO Q8HR YOLANDA Sodium Chloride 500 mls @ 50 mls/hr 10/02/18 02:25 10/02/18 02:54 Nacl 0.9% 500 Ml IV 50 mls/hr DIRECT YOLANDA Administration Ibuprofen 800 mg 09/30/18 20:58 10/02/18 18:40 Ibuprofen PO 800 mg Q8H PRN Administration Pain, Mild (1-3) Magnesium Hydroxide 30 ml 10/01/18 06:00 Milk Of Magnesia PO HS PRN Constipation Potassium Chloride 20 meq 10/04/18 10:00 K-Dur PO QDAY YOLANDA Valsartan 80 mg 10/02/18 23:45 10/03/18 00:27 Diovan PO 80 mg QDAY YOLANDA Administration Witch Nataliia/Glycerin 1 each 10/01/18 06:00 Tucks Pad TP PRN PRN Hemorrhoid/cleansing/soothing
[2018-10-03] MEDS ORDERED: LASIX PO SCH (10:00)
[2018-10-03] MEDS: APRESOLINE PO SCH ×2 (10:32→18:42)
--- NOTE | 2018-10-03 10:40 | Event Note ---
Date: 10/03/18 Patient resting in bed, no complaints. Plan of care explained. Questions encouraged and answered. She voiced understanding and agrees with course of care
[2018-10-03] MEDS: IBUPROFEN PO PRN (13:21)
[2018-10-03] MEDS ORDERED: DILAUDID IM ONE (21:20)
[2018-10-04] MEDS ORDERED: APRESOLINE IV PRN (00:15)
[2018-10-04] MEDS: TYLENOL PO PRN ×3 (03:12→16:19)
[2018-10-04] MEDS: APRESOLINE PO SCH ×2 (03:13→10:42)
[2018-10-04] MEDS: IBUPROFEN PO PRN (08:37)
[2018-10-04] MEDS ORDERED: K-DUR PO ONE (09:28)
--- NOTE | 2018-10-04 09:32 | Progress Note ---
Assessment and Plan Assessment and plan: Patient is a 27 yo woman without chronic medical condition prior to delivery of a healthy baby girl on 09/24/2018 who presented to [facility] on 09/29/18 with headaches and back pains to the neck pains. Hospitalist consulted on 10/02/18 for bp management. Patient is not or breast pumping for feedings, so Dr. Villa started on Valsartan and Labetolol. Patient feels the labetolol may worsen the headaches and may be associated with SOB and edema which are common side effects of Labetalol. The IV lasix x1 did help. A CTA was negative for PE, pneumonia but did show pulmonary mild edema which was helped by the IV lasix. CT neck did not show any acute cervical abnormalities. I stopped the IV rocephin and IV azithromycin unlikely pneumonia. * CTA chest IMPRESSION: 1. Negative for PTE. 2. Mild edema with small bilateral effusions. Dyspnea due to the Pulmonary Edema, due to Peripartum Cardiomyopathy, EF 45%: treat with lasix and potassium, Uncontrolled hypertension with Urgency: stop labetalol due to side effects. Start oral hydralazine and low dose lasix with potassium daily. Hypokalemia: repleted, now stable Hypernatremia: treated and stable, monitor bmp closely Elevated Transamines all improving, suspect related to , only abnormality now is ALT is 59 and normal is up to 56. Most of her uncontrolled blood pressures are during the evening/night. Add Norvasc (not ) which can be given at night or day. She had an isolated increase in temp (not fever) up to 100.1F, blood culture sent, continue to hold ABX; if she does spike a fever then will re-consider adding ABX okay to discharge from IM standpoint on lasix 20mg/d, potassium 20mg/d with lasix, norvasc 10 mg/day, valsartan 80/day and hydralazine 25 mg TID In regards to the neck pains, there is no radiculopathy on exam. History Interval history: Patient was seen and examined. Follow-up on current diagnosis. No overnight events reported to me. Patient denies any chest pain, shortness breath, nausea/vomiting or severe headaches. Imaging, nursing note, chart, labs and old chart reviewed. Discussed with patient. Hospitalist Physical - Physical exam Narrative exam: Gen: WDWN, NAD, Awake, Alert, Orientated HEENT: NCAT, EOMI, PERRL, OP Clear Neck: supple, no adenopathy, no thyromegaly, no JVD CVS/Heart: RRR, normal S1S2, pulses present bilaterally Chest/Lungs: CTA B, Symmetrical chest expansion, good air entry bilaterally GI/Abdomen: soft, NTND, good bowel sounds, no guarding or rebound /Bladder: no suprapubic tenderness, no CVA or paraspinal tenderness Extermity/Skin: no c/c/e, no obvious rash MSK: FROM x 4 Neuro: CN 2-12 grossly intact, no new focal deficits Psych: calm - Constitutional Vitals: Temp Pulse Resp BP Pulse Ox 98.6 F 72 18 148/90 99 10/04/18 04:20 10/04/18 04:20 10/04/18 04:20 10/04/18 04:20 10/03/18 16:50 Results - Labs CBC & Chem 7: 10/02/18 01:18 10/04/18 12:37 Labs: Laboratory Last Values WBC 7.8 K/mm3 (4.5-11.0) 10/02/18 01:18 RBC 4.19 M/mm3 (3.65-5.03) 10/02/18 01:18 Hgb 12.5 gm/dl (10.1-14.3) 10/02/18 01:18 Hct 37.7 % (30.3-42.9) 10/02/18 01:18 MCV 90 fl (79-97) 10/02/18 01:18 MCH 30 pg (28-32) 10/02/18 01:18 MCHC 33 % (30-34) 10/02/18 01:18 RDW 14.4 % (13.2-15.2) 10/02/18 01:18 Plt Count 232 K/mm3 (140-440) 10/02/18 01:18 Lymph % (Auto) 23.6 % (13.4-35.0) 09/29/18 19:13 [place] % (Auto) 9.4 % (0.0-7.3) H 09/29/18 19:13 Eos % (Auto) 3.9 % (0.0-4.3) 09/29/18 19:13 Baso % (Auto) 0.4 % (0.0-1.8) 09/29/18 19:13 Lymph # 2.1 K/mm3 (1.2-5.4) 09/29/18 19:13 [place] # 0.8 K/mm3 (0.0-0.8) 09/29/18 19:13 Eos # 0.3 K/mm3 (0.0-0.4) 09/29/18 19:13 Baso # 0.0 K/mm3 (0.0-0.1) 09/29/18 19:13 Seg Neutrophils % 62.7 % (40.0-70.0) 09/29/18 19:13 Seg Neutrophils # 5.6 K/mm3 (1.8-7.7) 09/29/18 19:13 PT 13.0 Sec. (12.2-14.9) 09/29/18 19:13 INR 1.01 (0.87-1.13) 09/29/18 19:13 APTT 28.3 Sec. (24.2-36.6) 09/29/18 19:13 Sodium 142 mmol/L (137-145) 10/02/18 01:18 Potassium 3.2 mmol/L (3.6-5.0) L 10/02/18 01:18 Chloride 105.5 mmol/L (98-107) 10/02/18 01:18 Carbon Dioxide 24 mmol/L (22-30) 10/02/18 01:18 16 mmol/L 10/02/18 01:18 BUN 12 mg/dL (7-17) 10/02/18 01:18 0.9 mg/dL (0.7-1.2) 10/02/18 01:18 Estimated GFR > 60 ml/min 10/02/18 01:18 13 % 10/02/18 01:18 Glucose 92 mg/dL (65-100) 10/02/18 01:18 Calcium 8.0 mg/dL (8.4-10.2) L 10/02/18 01:18 Magnesium 4.60 mg/dL (1.7-2.3) H 10/01/18 00:30 0.40 mg/dL (0.1-1.2) 10/02/18 01:18 AST 19 units/L (5-40) 10/02/18 01:18 ALT 59 units/L (7-56) H 10/02/18 01:18 87 units/L (35-129) 10/02/18 01:18 6.3 g/dL (6.3-8.2) 10/02/18 01:18 3.3 g/dL (3.9-5) L 10/02/18 01:18 1.1 % 10/02/18 01:18 Straw (Yellow) 09/29/18 Unknown Clear (Clear) 09/29/18 Unknown 5.0 (5.0-7.0) 09/29/18 Unknown Ur Specific [place] 1.008 (1.003-1.030) 09/29/18 Unknown <15 mg/dl mg/dL (Negative) 09/29/18 Unknown Neg mg/dL (Negative) 09/29/18 Unknown Neg mg/dL (Negative) 09/29/18 Unknown Mod (Negative) 09/29/18 Unknown Neg (Negative) 09/29/18 Unknown Neg (Negative) 09/29/18 Unknown < 2.0 mg/dL (<2.0) 09/29/18 Unknown Ur Leukocyte Esterase Neg (Negative) 09/29/18 Unknown 3.0 /HPF (0.0-6.0) 09/29/18 Unknown 2.0 /HPF (0.0-6.0) 09/29/18 Unknown U Epithel Cells (Auto) < 1.0 /HPF (0-13.0) 09/29/18 Unknown Few /HPF 09/29/18 Unknown Active Medications - Current Medications Current Medications: Generic Name Dose Route Start Last Admin Trade Name Freq PRN Reason Stop Dose Admin Acetaminophen 650 mg 09/30/18 11:26 10/04/18 03:12 Tylenol PO 650 mg Q4H PRN Administration Pain, Mild (1-3) Bisacodyl 10 mg 10/01/18 06:00 Dulcolax NM BID PRN Constipation Diphenhydramine HCl 25 mg 10/01/18 06:00 Benadryl PO Q6H PRN Itching Hydralazine HCl 25 mg 10/03/18 10:00 10/04/18 03:13 Apresoline PO 25 mg Q8HR YOLANDA Administration Hydralazine HCl 10 mg 10/04/18 00:15 10/04/18 00:37 Apresoline IV 10 mg Q4HR PRN Administration Blood Pressure Sodium Chloride 500 mls @ 50 mls/hr 10/02/18 02:25 10/02/18 02:54 Nacl 0.9% 500 Ml IV 50 mls/hr DIRECT YOLANDA Administration Ibuprofen 800 mg 09/30/18 20:58 10/04/18 08:37 Ibuprofen PO 800 mg Q8H PRN Administration Pain, Mild (1-3) Magnesium Hydroxide 30 ml 10/01/18 06:00 Milk Of Magnesia PO HS PRN Constipation Potassium Chloride 20 meq 10/04/18 10:00 K-Dur PO QDAY YOLANDA Potassium Chloride 40 meq 10/04/18 09:28 K-Dur PO 10/04/18 09:29 ONCE ONE Valsartan 80 mg 10/02/18 23:45 10/03/18 09:38 Diovan PO 80 mg QDAY YOLANDA Administration Witch Nataliia/Glycerin 1 each 10/01/18 06:00 Tucks Pad TP PRN PRN Hemorrhoid/cleansing/soothing
[2018-10-04] MEDS ORDERED: NORVASC PO SCH (10:00)
[2018-10-04] MEDS ORDERED: K-DUR PO SCH (10:00)
[2018-10-04] MEDS: DIOVAN PO SCH (10:43)
--- NOTE | 2018-10-04 11:06 | Progress Note ---
<PAULA ASIF K - Last Filed: 10/04/18 11:07> Assessment and Plan Patient resting in bed, reports being comfortable, denies any complaints or concerns other than dull mild BRODERICK with right sided back/neck pain since admission. She reports it is better, but still there. Patient denies any SOB, difficulty breathing, cough, chest pain, or any other complaints. Lochia is scant. Demonstrated/educated patient how to use IS. DWP recent changes in BP and reviewed BP results and lab/imaging/test results. All questions answered. Continue current POC. Per Hospitalist note: Dr. Howard to read ECHO today Most of her uncontrolled blood pressures are during the night. Add Norvasc (not ) which can be given at night or day. Stopped the lasix due to worsening hypokalemia and replete the potassium. She had an isolated increase in temp (not fever) up to 100.1F, blood culture sent, continue to hold ABX; if she does spike a fever then will re-consider adding ABX Subjective - Subjective Date of service: 10/04/18 Principal diagnosis: day #10; readmission for pre-e Patient reports: appetite normal, voiding normally, pain well controlled (mild, dull BRODERICK remains since admission. "better, but still kind of there"), ambulating normally : doing well (home ), other Objective - Vital Signs Latest vital signs: Vital Signs Temp Pulse Resp BP BP Pulse Ox 10/04/18 10:42 133/88 10/04/18 04:20 98.6 F 72 18 148/90 10/04/18 04:12 18 10/04/18 04:05 98.6 F 69 18 161/107 10/04/18 03:13 70 144/92 10/04/18 03:02 70 144/92 10/04/18 02:32 72 148/91 10/04/18 02:02 73 158/102 10/04/18 01:47 70 171/106 10/04/18 01:32 71 162/104 10/04/18 01:17 73 156/101 10/04/18 01:02 79 152/97 10/04/18 00:57 72 147/97 10/04/18 00:52 71 156/98 10/04/18 00:47 74 149/103 10/04/18 00:42 78 144/96 10/04/18 00:37 81 163/98 10/03/18 23:30 99 F 78 18 162/98 10/03/18 22:08 18 10/03/18 21:00 99.1 F 68 16 155/103 10/03/18 19:45 18 10/03/18 18:42 166/109 10/03/18 16:50 100.1 F H 63 18 169/109 99 10/03/18 11:53 97.4 F L 71 18 158/107 98 Intake and Output 10/03/18 10/04/18 10/04/18 23:59 07:59 15:59 Intake Total 240 300 Balance 240 300 Intake: Oral 240 Intake, Free Water 300 Other: Total, Intake Amount 240 Voiding Method Toilet # Voids Void 1 - Exam Cardiovascular: Present: Regular rate, Normal S1, Normal S2 Lungs: Present: Clear to auscultation, Normal air movement Abdomen: Present: normal appearance, soft, normal bowel sounds Uterus: Present: normal, firm, fundal height below umbilicus Extremities: Present: normal <GREGG,RAYNE D - Last Filed: 10/04/18 12:18> Assessment and Plan Still with neck pain that causes BRODERICK, improves when she's not lying down. She denies vaginal bleeding. Breast soft, no engorgement, abd soft NT unable to palpate uterus. Ambulate in coronel qid, ice packs to breasts. Continue care per Dr. Hunt. Objective - Vital Signs Latest vital signs: Vital Signs Temp Pulse Resp BP BP Pulse Ox 10/04/18 10:42 133/88 10/04/18 10:41 137/88 10/04/18 08:07 98.6 F 79 18 141/91 96 10/04/18 04:20 98.6 F 72 18 148/90 10/04/18 04:12 18 10/04/18 04:05 98.6 F 69 18 161/107 10/04/18 03:13 70 144/92 10/04/18 03:02 70 144/92 10/04/18 02:32 72 148/91 10/04/18 02:02 73 158/102 10/04/18 01:47 70 171/106 10/04/18 01:32 71 162/104 10/04/18 01:17 73 156/101 10/04/18 01:02 79 152/97 10/04/18 00:57 72 147/97 10/04/18 00:52 71 156/98 10/04/18 00:47 74 149/103 10/04/18 00:42 78 144/96 10/04/18 00:37 81 163/98 10/03/18 23:30 99 F 78 18 162/98 10/03/18 22:08 18 10/03/18 21:00 99.1 F 68 16 155/103 10/03/18 19:45 18 10/03/18 18:42 166/109 10/03/18 16:50 100.1 F H 63 18 169/109 99 Intake and Output 10/03/18 10/04/18 10/04/18 22:59 06:59 14:59 Intake Total 240 300 Balance 240 300 Intake: Oral 240 Intake, Free Water 300 Other: Total, Intake Amount 240 Voiding Method Toilet # Voids Void 1
--- NOTE | 2018-10-04 12:56 | Consultation ---
<GORDO ALMANZA - Last Filed: 10/04/18 13:16> History of Present Illness Consult date: 10/04/18 Consult reason: chest pain History of present illness: Ms. Dave is a 27 y/o female with no known medical history prior to childbirth on 09/24/18 who presented to [facility] with c/o headache, backache and neck pain. She was found to be hypertensive at the time and was started on antihypertensives. She also had mild pulmonary edema per CXR and was started on IV Lasix. We were consulted today after the patient c/o chest pain and SOB since Friday. She reports that the CP occurs when coughing and the SOB occurs on inspiration. She states that the CP and SOB are resolved, but her neck and upper back pain persist. An echocardiogram on 10/04/18 found an EF of 45 percent and otherwise normal cardiac function. Past History Past Medical History: other (Childbirth) Medications and Allergies Allergies Allergy/AdvReac Type Severity Reaction Status Date / Time No Known Allergies Allergy Verified 05/02/18 12:18 Home Medications Medication Instructions Recorded Confirmed Last Taken Type traMADol [Ultram 50 MG tab] 50 mg PO Q6HR PRN #20 tablet 03/27/14 10/02/18 Unknown Rx Ibuprofen [Motrin 600 MG tab] 600 mg PO Q8H PRN #30 tablet 04/17/15 10/02/18 Unknown Rx Nitrofurantoin [place]/M-Cryst 100 mg PO Q12HR #20 capsule 04/17/15 10/02/18 Unknown Rx [Macrobid CAP] Cyclobenzaprine [Flexeril] 10 mg PO TID PRN #20 tablet 01/06/17 10/02/18 Unknown Rx Ibuprofen [Motrin 800 MG tab] 800 mg PO TID PRN #15 tablet 01/06/17 10/02/18 Unknown Rx HYDROcodone/APAP 5-325 [[place] 1 each PO Q6HR PRN #10 tablet 05/26/17 10/02/18 Unknown Rx 5/325] Ibuprofen [Ibuprofen 800] 800 mg PO TID PRN #15 tablet 05/26/17 10/02/18 Unknown Rx Butalb/Acetamin/Caff 50-325-40 1 tab PO Q6HR PRN #15 tab 09/29/18 Unknown Rx [Fioricet 50-325-40] Ketorolac [Toradol] 10 mg PO Q8H PRN #20 tablet 09/29/18 Unknown Rx tiZANidine [Zanaflex 4mg TAB] 4 mg PO Q8H PRN #21 tablet 09/29/18 Unknown Rx Valsartan 80 mg PO QDAY #30 tablet 10/03/18 Unknown Rx Active Meds: Active Medications Acetaminophen (Tylenol) 650 mg PO Q4H PRN PRN Reason: Pain, Mild (1-3) Last Admin: 10/04/18 10:43 Dose: 650 mg Documented by: Amlodipine Besylate (Norvasc) 10 mg PO QDAY [facility] Last Admin: 10/04/18 12:50 Dose: 10 mg Documented by: Bisacodyl (Dulcolax) 10 mg RI BID PRN PRN Reason: Constipation Diphenhydramine HCl (Benadryl) 25 mg PO Q6H PRN PRN Reason: Itching Hydralazine HCl (Apresoline) 25 mg PO Q8HR [facility] Last Admin: 10/04/18 10:42 Dose: 25 mg Documented by: Hydralazine HCl (Apresoline) 10 mg IV Q4HR PRN PRN Reason: Blood Pressure Last Admin: 10/04/18 00:37 Dose: 10 mg Documented by: Sodium Chloride (Nacl 0.9% 500 Ml) 500 mls @ 50 mls/hr IV DIRECT [facility] Last Admin: 10/02/18 02:54 Dose: 50 mls/hr Documented by: Ibuprofen (Ibuprofen) 800 mg PO Q8H PRN PRN Reason: Pain, Mild (1-3) Last Admin: 10/04/18 08:37 Dose: 800 mg Documented by: Magnesium Hydroxide (Milk Of Magnesia) 30 ml PO HS PRN PRN Reason: Constipation Potassium Chloride (K-Dur) 20 meq PO QDAY [facility] Last Admin: 10/04/18 10:45 Dose: Not Given Documented by: Valsartan (Diovan) 80 mg PO QDAY [facility] Last Admin: 10/04/18 10:43 Dose: 80 mg Documented by: Jayla William/Glycerin (Tucks Pad) 1 each TP PRN PRN PRN Reason: Hemorrhoid/cleansing/soothing Review of Systems All systems: negative Musculoskeletal: neck pain, other (upper back pain) Physical Examination Vital Signs Temp Pulse Resp BP Pulse Ox 98.6 F 62 19 182/107 99 09/29/18 19:03 09/29/18 19:03 09/29/18 19:03 09/29/18 19:03 09/29/18 19:03 General appearance: no acute distress HEENT: Positive: PERRL Neck: Positive: neck supple Cardiac: Positive: Reg Rate and Rhythm Lungs: Positive: Normal Exam Neuro: Positive: Grossly Intact Abdomen: Positive: Unremarkable Female genitourinary: deferred Skin: Positive: Clear Musculoskeletal: Normal Range of Motion Extremities: Present: normal Results 10/02/18 01:18 10/02/18 01:18 - Imaging and Cardiology Echo: report reviewed (10/04/18: EF 45%) EKG interpretations - Telemetry EKG Rhythm: Sinus Rhythm Assessment and Plan Ms. Dave is a 27 y/o female with no known medical history who presented five days post- with head, neck and back pain. She was found to be hypertensive. She also experienced chest pain and SOB several days later. The chest pain is likely related to coughing and the SOB is r/t mild pulmonary edema brought on by peripartum cardiomyopathy. Agree with Lasix for now and would continue Norvasc for hypertension. She is stable from a cardiac standpoint and may be discharged home from our perspective. We recommend follow up in our office in 7-10 days. Call for an appointment. - Patient Problems (1) Peripartum cardiomyopathy Current Visit: Yes Status: Acute (2) Back pain Current Visit: Yes Status: Acute Qualifiers: Back pain location: back pain in unspecified location Chronicity: acute (3) Neck pain Current Visit: Yes Status: Acute (4) Preeclampsia in period Onset Date: ~09/29/18 Current Visit: Yes Status: Acute (5) Atypical chest pain Current Visit: Yes Status: Acute (6) Pulmonary edema Current Visit: Yes Status: Acute <CLARITA ENCINAS - Last Filed: 10/04/18 13:40> Medications and Allergies Active Meds: Active Medications Acetaminophen (Tylenol) 650 mg PO Q4H PRN PRN Reason: Pain, Mild (1-3) Last Admin: 10/04/18 10:43 Dose: 650 mg Documented by: Amlodipine Besylate (Norvasc) 10 mg PO QDAY [facility] Last Admin: 10/04/18 12:50 Dose: 10 mg Documented by: Bisacodyl (Dulcolax) 10 mg RI BID PRN PRN Reason: Constipation Diphenhydramine HCl (Benadryl) 25 mg PO Q6H PRN PRN Reason: Itching Hydralazine HCl (Apresoline) 25 mg PO Q8HR [facility] Last Admin: 10/04/18 10:42 Dose: 25 mg Documented by: Hydralazine HCl (Apresoline) 10 mg IV Q4HR PRN PRN Reason: Blood Pressure Last Admin: 10/04/18 00:37 Dose: 10 mg Documented by: Sodium Chloride (Nacl 0.9% 500 Ml) 500 mls @ 50 mls/hr IV DIRECT [facility] Last Admin: 10/02/18 02:54 Dose: 50 mls/hr Documented by: Ibuprofen (Ibuprofen) 800 mg PO Q8H PRN PRN Reason: Pain, Mild (1-3) Last Admin: 10/04/18 08:37 Dose: 800 mg Documented by: Magnesium Hydroxide (Milk Of Magnesia) 30 ml PO HS PRN PRN Reason: Constipation Potassium Chloride (K-Dur) 20 meq PO QDAY [facility] Last Admin: 10/04/18 10:45 Dose: Not Given Documented by: Valsartan (Diovan) 80 mg PO QDAY [facility] Last Admin: 10/04/18 10:43 Dose: 80 mg Documented by: Jayla Stephensel/Glycerin (Tucks Pad) 1 each TP PRN PRN PRN Reason: Hemorrhoid/cleansing/soothing Physical Examination Vital Signs Temp Pulse Resp BP Pulse Ox 98.6 F 62 19 182/107 99 09/29/18 19:03 09/29/18 19:03 09/29/18 19:03 09/29/18 19:03 09/29/18 19:03 Results 10/02/18 01:18 10/02/18 01:18 Assessment and Plan sob related to htn and possible peripartum cmp
[2018-10-04 13:50] LABS: BUN/Creatinine Ratio 16; Blood Urea Nitrogen 14 mg/dL (7-17); Calcium 8.8 mg/dL (8.4-10.2); Hemolysis Index 6
[2018-10-04] MEDS ORDERED: LASIX PO SCH (15:00)
--- NOTE | 2018-10-04 15:13 | Discharge Summary ---
Providers - Providers Date of Admission: 09/30/18 04:39 Date of discharge: 10/04/18 Attending physician: RAYNE ESCOBEDO 10/02/18 13:49 Consult to Physician [CONS] Routine Comment: Consulting Provider: RISSA SANCHEZ Physician Instructions: Please evalute for bp management Reason For Exam: bp management 10/04/18 11:45 Consult to Physician [CONS] Routine Comment: Consulting Provider: CLARITA ENCINAS Physician Instructions: i notified Reason For Exam: cardiomyopathy Primary care physician: BRINDA DORSEY Hospitalization Reason for admission: other (PPD# 10:PP gestational hypertension with severe features, Peripartum cardiomyopathy, BRODERICK with neck spasms) Discharge diagnosis: other (gestational hypertension with severe features, Peripartum cardiomyopathy, BRODERICK with neck spasms) Hospital course: Patient is a 27-year-old female with no past medical history presents to ED with complaint of acute onset persistent severe headache, neck pain low back pain for the 2 days prior to admission. Patient is 8 days from spontaneous vaginal delivery. She had an epidural procedures performed during her labor. Patient states that the headache has been progressively getting worse. Patient denies change in vision, nausea, vomiting, syncope, chest pain, shortness of breath, seizures, abdominal pain, fever or chills on admission. She was diagnosed with atypical presentation of preeclampsia and started on MgSO4 therapy for 24 hour and Labetalol for BP control. Anesthesia evaluation did not believe this is PDPH. Patient stated she would not want blood patch even if it was. Head and neck pain persisted with controlled BP's therefore a Neck and head CT scan was ordered. The neck CT scan revealed ? apical pleural effusion. CXR revealed ? mild inflammatory process. She then complained of SOB and coughing. She was started on Zithromax and Rocephin for possible pneumonia. She was also given a dose of Lasix with improvment of her symptoms. About this time her BP increased and the hospitalist service was consulted. She was afebrile with normal WBC's therefore the antibiotics were discontinued. BP's medications were adjusted and echocardiogram was performed that revealed peripartum cardiomyopathy. After a Cardiology consultation was completed and BP's were stable on the medication regimen she was allowed home. Condition at discharge: Stable Disposition: - TO HOME OR SELFCARE - Discharge Diagnoses (1) Cervical paraspinous muscle spasm Status: Acute (2) Peripartum cardiomyopathy Status: Acute (3) Preeclampsia in period Status: Acute Plan - Discharge Medications Prescriptions: hydrALAZINE [Apresoline TAB] 25 mg PO TID #90 tablet Valsartan [Diovan] 80 mg PO QDAY #30 tablet Butalb/Acetamin/Caff 50-325-40 [Fioricet 50-325-40] 1 tab PO Q6HR PRN #15 tab PRN Reason: Headache Potassium Chloride [K-Dur] 20 meq PO QDAY #30 tablet Furosemide [Lasix TAB] 20 mg PO QDAY #30 tablet amLODIPine [Norvasc] 10 mg PO QDAY #30 tablet Ketorolac [Toradol] 10 mg PO Q8H PRN #20 tablet PRN Reason: Pain Valsartan 80 mg PO QDAY #30 tablet tiZANidine [Zanaflex 4mg TAB] 4 mg PO Q8H PRN #21 tablet PRN Reason: Spasms - Provider Discharge Summary Activity: no sex for 6 weeks, no heavy lifting 4 weeks, no strenuous exercise Diet: other (Low sodium) Additional instructions: [] Smoking cessation referral if applicable(refer to patient education folder for contact #) [] Refer to [facility] Booklet Call your doctor immediately for: * Fever > 100.5 * Heavy vaginal bleeding ( >1 pad per hour) * Severe persistent headache * Shortness of breath * Reddened, hot, painful area to leg or breast * Drainage or odor from incision. * Keep incision clean and dry at all times and follow doctor's instructions regarding bathing/showering - Follow up plan Follow up: BRINDA DORSEY MD [Primary Care Provider] - 3-5 Days HEATHER BRIGGS MD [Staff Physician] - 10/07/18 9:30 am ([place]) CLARITA ENCINAS MD [Staff Physician] - 7 Days Forms: Accompanied Note
[2018-10-04 17:37] VITALS: BP 136/96
== END 2018-10-04 17:30 | disposition home or self-care (01) | DRG 776 ==
LOC: ED 18:45 → LD 09-30 02:14 → OBSVTOIN 09-30 04:39 → OB 10-01 08:11
PROVIDERS: ADMIT Obstetrics & Gynecology; ATTEND Obstetrics & Gynecology
DX: O14.95 Unspecified pre-eclampsia, complicating the puerperium (principal); J18.9 Pneumonia, unspecified organism; I42.9 Cardiomyopathy, unspecified; E87.0 Hyperosmolality and hypernatremia; O99.355 Diseases of the nervous system complicating the puerperium; O13.5 Gestational [pregnancy-induced] hypertension without significant proteinuria, complicating the puerperium; O99.43 Diseases of the circulatory system complicating the puerperium; O99.53 Diseases of the respiratory system complicating the puerperium; M62.838 Other muscle spasm; O90.89 Other complications of the puerperium, not elsewhere classified; O12.05 Gestational edema, complicating the puerperium; O16.5 Unspecified maternal hypertension, complicating the puerperium; I16.0 Hypertensive urgency; T44.8X5A Adverse effect of centrally-acting and adrenergic-neuron-blocking agents, initial encounter; E87.6 Hypokalemia; R74.0 Nonspecific elevation of levels of transaminase and lactic acid dehydrogenase [LDH]; R51 Headache; M54.2 Cervicalgia; M54.9 Dorsalgia, unspecified; E86.0 Dehydration; Z79.899 Other long term (current) drug therapy; Y92.89 Other specified places as the place of occurrence of the external cause
CPT/HCPCS: 36415; 70450; 70490; 71046; 71275; 72131; 80048; 80053; 81001; 83735; 85025; 85027; 85610; 85730; 87040; 93005; 93010; 93306; 96374; 96375; G0378; J0360; J0456; J0696; J1170; J1200; J1885; J1940; J2405; J3475; J7030; J7040; J7050; J7120; Q9967

== ENCOUNTER 2018-12-07 10:56 | Day surgery (SDC) | payer BC, MEDICAID ==
--- NOTE | 2018-12-07 07:40 | History and Physical Report ---
History of Present Illness History of present illness: Patient desires sterilization.Discuss the permanency of sterilization. High risk of regret and 0.5 to 1% risk of failure. Discussed the different risk of abdominal versus vaginal approaches Patient desires laparoscopic tubal ligation Vital Signs: Patient Profile: 28 Years Old Female LMP: 11/11/2018 Height: 64 inches (162.56 cm) Weight: 179 pounds BMI: 30.72 Menstrual History: LMP (date): 11/11/2018 LMP - Character: normal Current Method of Contraception: Depo-Provera, nothing Date of Last Pap Smear: 10/22/2018 Past History : 3 Term Births: 2 Premature Births: 1 Living Children: 3 Para: 3 Mult. Births: 0 Prev : 0 Prev. attempt? 0 Aborta: 0 Elect. Ab: 0 Spont. 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 of genital herpes: yes Partner hx. 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 Current Allergies (reviewed today): No known allergies Past Medical History: Chlamydia 2014 Peripartum cardiomyopathy 2019 Past Surgical History: Negative Past Surgical History Family History Summary: Daughter (biol.) - Has Family History of Hypertension - Please disregard relationships chosen - Entered On: 05/03/2014 Daughter (biol.) - Has No Family History of Breast Cancer - Please disregard relationships chosen - Entered On: 05/03/2014 Daughter (biol.) - Has No Family History of Colon Cancer - Please disregard relationships chosen - Entered On: 05/03/2014 Daughter (biol.) - Has No Family History of Diabetes - Please disregard relationships chosen - Entered On: 05/03/2014 Daughter (biol.) - Has No Family History of Ovarvian Cancer - Please disregard relationships chosen - Entered On: 05/03/2014 Other family member - Has No Family History of Bilirubin tract cancer - Entered On: 06/21/2015 Other family member - Has No Family History of Breast Cancer - Entered On: 06/21/2015 Other family member - Has No Family History of Brain Cancer - Entered On: 06/21/2015 Other family member - Has No Family History of Colon Cancer - Entered On: 06/21/2015 Other family member - Has No Family History of DVT/PE on OCP - Entered On: 06/21/2015 Other family member - Has No Family History of Kidney/Urinary Tract Cancer - Entered On: 06/21/2015 Other family member - Has No Family History of Ovarvian Cancer - Entered On: 06/21/2015 Other family member - Has No Family History of Pancreatic Cancer - Entered On: 06/21/2015 Other family member - Has No Family History of Stomach Cancer - Entered On: 06/21/2015 Other family member - Has No Family History of Small Bowel Cancer - Entered On: 06/21/2015 Other family member - Has No Family History of Uterine Cancer - Entered On: 06/21/2015 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 Risk Factors: Smoked Tobacco Use: Never smoker Smokeless Tobacco Use: Never Passive smoke exposure: no Drug use: no HIV high-risk behavior: no Caffeine use: 3 drinks per day Alcohol use: no Exercise: no Seatbelt use: 100 % Dietary Counseling: pn yes PAP Smear History: Date of Last PAP Smear: 10/22/2018 Review of Systems General Denies fever, chills, sweats, anorexia, fatigue, weakness, malaise, weight loss and sleep disorder. Denies vaginal discharge, incontinence, dysuria, hematuria, urinary frequency, amenorrhea, menorrhagia, abnormal vaginal bleeding, pelvic pain, genital sores, decreased libido, painful periods, painful sex, urinary urgency, hot flashes, vaginal dryness, vaginal itching and vaginal odor. CV Denies chest pains, palpitations, syncope, dyspnea on exertion, orthopnea, PND and peripheral edema. Resp Denies cough, dyspnea at rest, excessive sputum, hemoptysis, wheezing and pleurisy. GI Denies nausea, vomiting, diarrhea, constipation, change in bowel habits, abdominal pain, melena, hematochezia, jaundice, gas/bloating, indigestion/heartburn, dysphagia and odynophagia. Breast Denies left breast lump, right breast lump, nipple discharge, bloody discharge from nipple, breast pain, abnormal mammogram and breast enlargement. Psych Denies depression, anxiety, irritability and mood swings. Past History Past Medical History: other (SEE HPI) Past Surgical History: Other (SEE HPI) Social history: full code, other (SEE HPI) Family history: other (SEE HPI) Medications and Allergies Allergies Allergy/AdvReac Type Severity Reaction Status Date / Time No Known Allergies Allergy Verified 12/03/18 10:47 Home Medications Medication Instructions Recorded Confirmed Last Taken Type No Known Home Medications [No 12/03/18 12/03/18 Unknown History Reported Home Medications] Review of Systems Constitutional: other (SEE HPI) Exam - Physical Exam Narrative exam: HEENT: normocephalic, no lesions or deformities Skin no ulcers, xanthomas Chest: respiratory effort normal, clear to auscultation CV: normal rate and rhythm Abdomen: soft, non-tender, no masses, bowel sounds normal Neuro: no gross anomalities Extremities: no clubbing, cyanosis, or edema 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 No evidence of cys tocele or rectocele. Cervix: normal appearance, no lesions, no discharge Uterus: normal position, midline, mobile Adnexae: no masses or tenderness Rectovaginal: exam defered Assessment and Plan - Patient Problems (1) Encounter for sterilization Status: Acute Plan to address problem: Patient desires sterilization.Discuss the permanency of sterilization. High risk of regret and 0.5 to 1% risk of failure. Discussed the different risk of abdominal versus vaginal approaches. Information given Discussed options of tubal blockage and salpingectomy and it's possible benefit of preventing ovarian cancer and increased risks of bleeding during the procedure. Discuss the risks of the surgery including infection, bleeding possibly heavy enough to require a blood transfusion, possilble damage to bowel, bladder or ureter. Patient understands and desires to proceed. 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
[2018-12-07] MEDS ORDERED: GABAPENTIN PO NR (11:00)
[2018-12-07] MEDS ORDERED: VERSED IV NR (11:00)
[2018-12-07] MEDS ORDERED: LACTATED RINGERS 1,000 ML IV SCH (11:00)
[2018-12-07] MEDS ORDERED: ZOFRAN IV PRN (11:34)
[2018-12-07] MEDS ORDERED: SUBLIMAZE IV PRN (11:34)
--- NOTE | 2018-12-07 11:39 | Anesthesia Day of Surgery ---
Anesthesia Day of Surgery - Day of Surgery Patient Examined: Yes Patient H&P Reviewed: Yes Patient is NPO: Yes Beta Blockers: Yes Cardiac Clearance: Yes
--- NOTE | 2018-12-07 11:42 | Anesthesia Consultation ---
Anesthesia Consult and Med Hx Date of service: 12/07/18 - Airway Anesthetic Teeth Evaluation: Chipped ROM Head & Neck: Adequate Mental/Hyoid Distance: Adequate Mallampati Class: Class II Intubation Access Assessment: Good - Pre-Operative Health Status ASA Pre-Surgery Classification: ASA2 Proposed Anesthetic Plan: General - Pulmonary Hx Respiratory Symptoms: No - Cardiovascular System Hx Hypertension: Yes (-resolved) Hx Coronary Artery Disease: No (Pre-eclampsia and peripartum cardiomyopathy. Recent echo good) Hx Heart Attack/AMI: No (Pt states can climb two flights of stairs. +Cardiac clearance) Hx Cardia Arrhythmia: No - Central Nervous System Hx Neuromuscular Disorder: No Hx Psychiatric Problems: No - Gastrointestinal Hx Gastroesophageal Reflux Disease: Yes - Endocrine Hx Insulin Dependent Diabetes: No Hx Non-Insulin Dependent Diabetes: No Hx Thyroid Disease: No - Other Systems Hx Cancer: No
[2018-12-07] MEDS ORDERED: MARCAINE 0.5% INFILTRATI ONE ×2 (11:50→12:33)
[2018-12-07] MEDS ORDERED: DIPRIVAN 10 MG/ML IV ONE (11:52)
[2018-12-07] MEDS ORDERED: ZEMURON IV ONE (11:52)
[2018-12-07] MEDS ORDERED: XYLOCAINE MPF 2% ONE (11:52)
[2018-12-07] MEDS ORDERED: METOPROLOL PO ONE (12:00)
[2018-12-07] MEDS ORDERED: METOPROLOL XL PO ONE (12:00)
[2018-12-07] MEDS ORDERED: SUBLIMAZE ONE (12:21)
[2018-12-07 12:27] LABS: Basophils % (Auto) 0.5 % (0.0-1.8); Eosinophils # (Auto) 0.2 K/mm3 (0.0-0.4); Eosinophils % (Auto) 2.8 % (0.0-4.3); Hematocrit 38.6 % (30.3-42.9); Hemoglobin 12.8 gm/dl (10.1-14.3); Lymphocytes # (Auto) 2.5 K/mm3 (1.2-5.4); Lymphocytes % (Auto) 38.4 % (13.4-35.0); Mean Corpuscular HGB Conc 33 % (30-34); Mean Corpuscular Volume 90 fl (79-97); Monocytes # (Auto) 0.5 K/mm3 (0.0-0.8); Monocytes % (Auto) 8.4 % (0.0-7.3); Platelet Count 242 K/mm3 (140-440); Red Blood Count 4.31 M/mm3 (3.65-5.03); Red Cell Distribution Width 14.3 % (13.2-15.2)
[2018-12-07] MEDS ORDERED: TORADOL ONE (12:30)
[2018-12-07] MEDS ORDERED: ZOFRAN ONE (12:30)
[2018-12-07] MEDS ORDERED: DECADRON ONE (12:30)
[2018-12-07] MEDS ORDERED: NACL 0.9% IR ONE (12:33)
--- NOTE | 2018-12-07 12:43 | Operative Report ---
Operative Report Operative Report: Pre-operative diagnosis: Patient desires permanent sterilization and history of cardiomyopathy Post-operative diagnosis: Same Procedure name(s): Laparoscopic bilateral tubal ligation with Falope-Rings Surgeon: Sb Palma MD Mold Swabber: [] Anesthesia: General endotracheal EBL: Minimal Complications: None Findings: Patient with uterus approximately 8-10 weeks in size with right fallopian tube showing adhesions to the posterior uterus with normal appearing Left fallopian tube and normal ovaries bilaterally Specimen(s): None Patient was brought in the operating room. General anesthesia was induced without difficulty. She was placed in dorsal lithotomy position. Prepped and draped in usual sterile manner. Her urinary bladder with was emptied with a red rubber catheter. Speculum placed in her vagina and Sargis uterine manipulator was placed for uterine manipulation. Attention was then switched to the patient's abdomen. An infra-umbilical incision was made with a scalpel. This incision was spread with a hemostat. A 5 mm trocar was placed in this incision while lifting high the abdominal wall. Intra-abdominal presence was verified directly with the laparoscope. The patient was then insufflated to approximately 3 L of CO2 gas. The patient's findings as noted above. An accessory puncture was made suprapubically. The 8 mm trocar was placed through this incision under direct visualization with no evidence of internal organ damage. Each of the fallopian tube were identified by its fimbriated end. A portion approximately 1-2 cm from each cornua was grasped with the Falope ring applicator. Falope-Rings were placed without any difficulty bilaterally. At this time all instruments were removed. The patient was deinsufflated. The skin incisions were closed subcuticular with 4-0 Vicryl. Marcaine was given subcuticularly for postoperative pain relief. The patient tolerated procedure well. She was awakened in the operating room and accompanied to the recovery room in good condition.
--- NOTE | 2018-12-07 12:48 | Short Stay Summary ---
Short Stay Documentation Date of service: 12/07/18 - History H&P: dictated Past Medical History: other (SEE HPI) Past Surgical History: Other (SEE HPI) Social history: full code, other (SEE HPI) - Allergies and Medications Current Medications: Allergies No Known Allergies Allergy (Verified 12/03/18 10:47) Home Medications Medication Instructions Recorded Confirmed Last Taken Type RX: oxyCODONE /ACETAMINOPHEN 1 - 2 tab PO Q4H PRN #20 tablet 12/07/18 Unknown Rx [Percocet 5/325 mg] Active Medications Celecoxib (Celebrex) 200 mg PO PREOP NR Stop: 12/07/18 23:00 Last Admin: 12/07/18 11:55 Dose: 200 mg Documented by: Fentanyl (Sublimaze) 50 mcg IV Q5MIN PRN PRN Reason: Pain , Severe (7-10) Gabapentin (Neurontin) 300 mg PO PREOP NR Stop: 12/07/18 23:00 Last Admin: 12/07/18 11:55 Dose: 300 mg Documented by: Lactated Ringer's (Lactated Ringers) 1,000 mls @ 100 mls/hr IV DIRECT YOLANDA Last Admin: 12/07/18 11:55 Dose: 100 mls/hr Documented by: Midazolam HCl (Versed) 2 mg IV PREOP NR Stop: 12/07/18 23:59 Ondansetron HCl (Zofran) 4 mg IV ONCE PRN PRN Reason: Nausea And Vomiting - Physical exam General appearance: no acute distress Lungs: Normal air movement Gastrointestinal: normal Female Genitourinary: normal Extremities: no ischemia - Brief post op/procedure progress note Date of procedure: 12/07/18 (See Dictated operative note) - Hospital course Hospital course: Patient was admitted underwent the above him procedure without any complications. Patient will be discharged with follow-up in office in 1-2 weeks for postop check. - Disposition Condition at discharge: Good Disposition: DC-01 TO HOME OR SELFCARE - Discharge Diagnoses (1) Encounter for sterilization Status: Acute (2) Peripartum cardiomyopathy Status: Acute Short Stay Discharge Plan Activity: advance as tolerated Diet: regular Wound: open to air Follow up with: RAYNE ESCOBEDO MD [Primary Care Provider] - 7 Days Prescriptions: RX: oxyCODONE /ACETAMINOPHEN [Percocet 5/325 mg] 1 - 2 tab PO Q4H PRN #20 tablet PRN Reason: Pain, Moderate
[2018-12-07] MEDS ORDERED: LABETALOL IV ONE ×2 (12:59→13:03)
[2018-12-07] MEDS ORDERED: DILAUDID ONE (12:59)
[2018-12-07] MEDS: DILAUDID IV PRN ×2 (13:15→13:30)
[2018-12-07] MEDS ORDERED: PERCOCET 5/325 PO PRN (13:21)
[2018-12-07] MEDS ORDERED: PERCOCET 5/325 ONE (13:30)
[2018-12-07] MEDS ORDERED: APRESOLINE ONE (13:33)
[2018-12-07] MEDS ORDERED: APRESOLINE IV ONE (13:34)
--- NOTE | 2018-12-07 14:57 | Post Anesthesia Evaluation ---
- Post Anesthesia Evaluation Patient Participated: Yes Airway Patent: Yes Stable Respiratory Function: Yes Nausea/Vomiting: No Temp > 96.8F: Yes Pain Manageable: Yes Adequeate Hydration: Yes Anesthesia Complications: No
[2018-12-07 19:54] VITALS: BP 132/91
== END 2018-12-07 10:57 | disposition home or self-care (01) ==
LOC: OR 10:56
PROVIDERS: ATTEND Obstetrics & Gynecology
DX: Z30.2 Encounter for sterilization (principal); O90.3 Peripartum cardiomyopathy; I10 Essential (primary) hypertension; K21.9 Gastro-esophageal reflux disease without esophagitis; Z98.890 Other specified postprocedural states; Z79.899 Other long term (current) drug therapy
CPT/HCPCS: 36415; 58671; 81025; 85025; A4264; J0360; J1100; J1170; J1885; J2405; J2704; J3010; J7120

== ENCOUNTER 2020-09-17 08:45 | Emergency (ER) | payer BC, MEDICAID ==
[2020-09-17 09:09] VITALS: BP 105/69
--- NOTE | 2020-09-17 09:48 | Emergency Department Report ---
Chief Complaint: Skin/Abscess/Foreign Body Stated Complaint: LUMP ON (R)SIDE OF NECK - HPI History of Present Illness: 29-year-old -[place] female presents to the emergency room for a small lump to her right neck that she noticed this morning. Patient states is just a little tender when you touch. She denies any fever chills or nausea no vomiting no chest pain shortness of breath. Patient denies any sore throat or earache. - Exam Vital Signs: Vital Signs 09/17/20 09:06 Temperature 98.8 F Pulse Rate 84 Respiratory 18 Rate Blood Pressure 105/69 O2 Sat by Pulse 100 Oximetry Physical Exam: Patient is alert and oriented x3 no acute distress nontoxic in appearance Patient is full range of her neck oral mucosa is moist and patent. She does have a very small lymphadenopathy. Neck is nonerythematous no lesions Respiratory nonlabored breathing we will assess her mouth issues Cardiac regular rate. Ambulatory without difficulties. MSE screening note: Focused history and physical exam performed. Due to findings the following was ordered: 29-year-old -[place] female presents to the emergency room for a small lump to her right neck that she noticed this morning. Patient states is just a little tender when you touch. She denies any fever chills or nausea no vomiting no chest pain shortness of breath. Patient denies any sore throat or earache. Patient has a mild swelling of her anterior lymph node of her neck. Nonerythematous mobile not fixed. Full range of motion of neck throat is patent no signs of infection. Patient is to follow-up with her primary care provider if she has any further concerns. ED Disposition for MSE Disposition: - TO HOME OR SELFCARE Is pt being admited?: No Does the pt Need Aspirin: No Condition: Stable Instructions: Lymphadenopathy Additional Instructions: Please follow-up with your primary care provider. Referrals: [facility] [Provider Group] - 3-5 Days Forms: Work/School Release Form(ED) Time of Disposition: 09:48
== END 2020-09-17 10:12 | disposition home or self-care (01) ==
LOC: ED 08:45
DX: R22.1 Localized swelling, mass and lump, neck (principal)
CPT/HCPCS: 99282